=== PATIENT | female | born 1960 | race African-American/Black ===

== ENCOUNTER 2016-11-04 11:24 | Emergency (ER) | payer OTHER ==
[~2016-11-04] VITALS: Ht 167.6 cm; Wt 107.0 kg
[~2016-11-04 11:24] MED LIST: ASPI81TA2 PO; CYCL10TA2 PO; DIPH25CA58 PO; FERR325T58 PO; HYDR-2762 PO; HYDR25TA9 PO; INSU100I13 SQ; INSU100I17 SQ; LOSARTAN POTASSIUM PO; LURA80TA PO; METF10002 PO; METO50TA2 PO; PANT40TA3 PO; TRAZ100T12 PO; VENTOLIN HFA18 GM IH; VITA100C8 PO
[2016-11-04 11:39] VITALS: BP 168/77
[2016-11-04] MEDS ORDERED: HYDR50CA2 PO (12:19)
[2016-11-04] MEDS ORDERED: MUPI22OI2 TP (12:19)
[2016-11-04] MEDS ORDERED: PRED50TA PO (12:19)
[2016-11-04] MEDS ORDERED: FAMO-63 PO (12:19)
--- NOTE | 2016-11-04 12:19 | PHYS DOC ---
Past Medical History Past Medical History: Asthma, CAD, Diabetes-Type II, High Cholesterol, Hypertension, [place] Additional Past Medical Histor: [place] x 2 Past Surgical History: Angioplasty, Other Additional Past Surgical Histo: STENTS X'S 2 Additional Information: 8 cigs/day. Alcohol Use: None Drug Use: None, Cocaine Adult General Chief Complaint Chief Complaint: COUGH HPI HPI Patient is a 56 year old female presents emergency room today with complaint of red, tender areas to her skin that began 3 days ago. Patient states that she was seen at [facility] for cough and was prescribed doxycycline. She states that the rash began within 24 hours after taking the doxycycline. She states that she has taken doxycycline when she was much younger and had no complications. She denies facial or airway swelling. She denies any difficulty breathing.. Patient states that she did stop taking the doxycycline within the past 24 hours. Review of Systems Review of Systems Constitutional: Denies fever or chills [] Eyes: Denies change in visual acuity, redness, or eye pain [] HENT: Denies nasal congestion or sore throat [] Respiratory: Denies cough or shortness of breath [] Cardiovascular: No additional information not addressed in HPI [] GI: Denies abdominal pain, nausea, vomiting, bloody stools or diarrhea [] : Denies dysuria or hematuria [] Musculoskeletal: Denies back pain or joint pain [] Integument: Denies rash or skin lesions [] Neurologic: Denies headache, focal weakness or sensory changes [] Endocrine: Denies polyuria or polydipsia [] Allergies Allergies Allergies Coded Allergies Type Severity Reaction Last Updated Verified ketorolac Allergy Intermediate 07/07/15 No morphine Allergy Intermediate 07/07/15 No Physical Exam Physical Exam Constitutional: Well developed, well nourished, no acute distress, non-toxic appearance. [] HENT: Normocephalic, atraumatic, bilateral external ears normal, oropharynx moist, no oral exudates, nose normal. There is no angioedema. There is no trismus. There is no mucocutaneous sloughing. Eyes: PERRLA, EOMI, conjunctiva normal, no discharge. [] Neck: Normal range of motion, no tenderness, supple, no stridor. Cardiovascular:Heart rate regular rhythm, no murmur [] Lungs & Thorax: There is no respiratory distress or respiratory fatigue. Patient does have a scant amount of bilateral wheezing. Excision saturations 97 % on room air. Abdomen: Bowel sounds normal, soft, no tenderness, no masses, no pulsatile masses. [] Skin: Macular erythematous lesions in patient's webspaces on her left and right hand. She also has a similar lesion on the radial aspect of her left wrist and one just proximal to her medial malleolus on her left ankle. There is a small vesicle in the center of the lesion above her left malleolus. There is no fluctuance, induration or ascending lymphangitis. There is no purulent drainage from either these lesions. Back: No tenderness, no CVA tenderness. [] Extremities: No tenderness, no cyanosis, no clubbing, ROM intact, no edema. [] Neurologic: Alert and oriented X 3, normal motor function, normal sensory function, no focal deficits noted. [] Psychologic: Affect normal, judgement normal, mood normal. [] Current Patient Data Vital Signs Vital Signs Date Time Temp Pulse Resp B/P Pulse Ox O2 Delivery O2 Flow Rate FiO2 11/04/16 11:39 98.6 105 20 98 Room Air 98.6 EKG EKG [] Radiology/Procedures Radiology/Procedures [] Course & Med Decision Making Course & Med Decision Making Pertinent Labs and Imaging studies reviewed. (See chart for details) [] Dragon Disclaimer Dragon Disclaimer This electronic medical record was generated, in whole or in part, using a voice recognition dictation system. Departure Departure Impression: Primary Impression: Adverse drug reaction Disposition: HOME, SELF-CARE Condition: GOOD Referrals: NO PCP (PCP) Patient Instructions: Antibiotic Medication Additional Instructions: 1. It appears to have an adverse reaction to the doxycycline that was prescribed. It is good that you stopped taking the doxycycline. 2. Take the new medications as prescribed. 3. Follow-up with your primary care doctor Monday as planned. Scripts Mupirocin (Mupirocin Ointment)22 Gm Oint...g.1 Kel TP TID WOUND CARE #1 TUBE Prov:EL CABAN 11/04/16 Hydroxyzine Pamoate 50 Mg Capsule1 Cap PO TID medication reaction #15 CAP Ref 1 Prov:EL CABAN 11/04/16 Prednisone 50 Mg Tablet1 Tab PO DAILY medication reaction #5 TAB Prov:EL CABAN 11/04/16 Famotidine (Pepcid)20 Mg Kurubi62 Mg PO BID 5 Days Prov:EL CABAN 11/04/16 EL CABAN Nov 04, 2016 12:19
== END 2016-11-04 12:31 | disposition home or self-care (01) ==
LOC: ER 11:24
DX: T36.4X5A Adverse effect of tetracyclines, initial encounter (principal); J45.909 Unspecified asthma, uncomplicated; I25.2 Old myocardial infarction; E78.00 Pure hypercholesterolemia, unspecified; I25.10 Atherosclerotic heart disease of native coronary artery without angina pectoris; I10 Essential (primary) hypertension; Y92.89 Other specified places as the place of occurrence of the external cause; Z98.61 Coronary angioplasty status; F14.10 Cocaine abuse, uncomplicated; Z88.5 Allergy status to narcotic agent; Z88.6 Allergy status to analgesic agent
CPT/HCPCS: 99283

== ENCOUNTER 2017-04-25 12:50 | Emergency (ER) | payer OTHER ==
[~2017-04-25] VITALS: Ht 167.6 cm; Wt 98.9 kg
[~2017-04-25 12:50] MED LIST changes: +ASPI-630 PO; -ASPI81TA2 PO; +FAMO-63 PO; +HYDR50CA2 PO; +METF-620 PO; -METF10002 PO; +MUPI22OI2 TP; +PRED50TA PO
[2017-04-25] MEDS ORDERED: IV NORMAL SALINE 1000ML BAG 1,000 ML IV SCH (13:13)
[2017-04-25] MEDS ORDERED: ASPIRIN CHEWABLE 81 MG TABLET. PO ONE (13:15)
--- NOTE | 2017-04-25 13:16 | EKG ---
[facility] [address] [place] [address] Test Date: 2017-04-25 Test Time: 12:59:04 Pat Name: SHAINA ARENAS Department: Room: Gender: F [employer] Member: : 1960 Requested By: CORI FOREMAN Order Number: [id number] Reading MD: Diamante Urbina Measurements Intervals [place] Rate: 102 P: 52 IN: 162 QRS: 13 QRSD: 92 T: 62 QT: 334 QTc: 439 Interpretive Statements SINUS TACHYCARDIA LEFT ATRIAL ABNORMALITY QRS(T) CONTOUR ABNORMALITY CONSIDER ANTEROLATERAL MYOCARDIAL DAMAGE Electronically Signed On 04-30-2017 14:57:58 CDT by Diamante Urbina
[2017-04-25 13:36] LABS: BASO # 0.1 x10^3/uL (0.0-0.2); BASO % 1 % (0-3); EOS % 2 % (0-3); HEMOGLOBIN 12.5 g/dL (12.0-15.5); LYMPH # 1.7 x10^3/uL (1.0-4.8); LYMPH % 35 % (24-48); MEAN CORPUSCULAR HEMOGLOBIN 28 pg (25-35); MEAN CORPUSCULAR HGB CONC 34 g/dL (31-37); MEAN CORPUSCULAR VOLUME 83 fL (79-100); MONO % 6 % (0-9); NEUT % 56 % (31-73); PLATELET COUNT 234 x10^3/uL (140-400); RED BLOOD COUNT 4.48 x10^6/uL (3.50-5.40); WHITE BLOOD COUNT 4.7 x10^3/uL (4.0-11.0)
--- NOTE | 2017-04-25 13:54 | RAD ---
Chest radiograph 04/25/2017 at 1344 hours Indication: Chest pain Comparison: Chest radiograph 07/05/2015 Technique: Single portable AP upright view of the chest is provided. Findings: Cardiomediastinal silhouette is within normal limits. No pleural effusions, pulmonary vascular congestion or pneumothorax. The lungs are clear. Osseous structures are normal. Impression: No acute cardiothoracic process.
[2017-04-25] MEDS ORDERED: IOHEXOL 350 MG/ML 100 ML VIAL. IV ONE (14:00)
[2017-04-25 14:05] LABS: ALBUMIN 3.4 g/dL (3.4-5.0); ALBUMIN/GLOBULIN RATIO 0.8 (1.0-1.7); CALCIUM 8.8 mg/dL (8.5-10.1); CREATININE 1.4 mg/dL (0.6-1.0); GFR 47.2; POTASSIUM 4.5 mmol/L (3.5-5.1); TOTAL BILIRUBIN 0.2 mg/dL (0.2-1.0); TOTAL PROTEIN 7.6 g/dL (6.4-8.2)
[2017-04-25] MEDS ORDERED: IV NORMAL SALINE 1000ML BAG 1,000 ML IV ONE ×2 (15:00→16:30)
[2017-04-25] MEDS ORDERED: INSULIN REGULAR 100 UNIT/ML 10ML VIAL. IV ONE ×2 (15:00→16:30)
[2017-04-25] MEDS ORDERED: HYDROmorphone 2 MG/ML VIAL IV ONE (15:00)
--- NOTE | 2017-04-25 15:43 | RAD ---
CTA of the chest, abdomen and pelvis with contrast, 04/25/2017: History: Neck and back pain, evaluate aorta Multidetector CT imaging was performed following an IV bolus injection of iodinated contrast material. Multiplanar reconstructions were produced. 3-D volume rendered reconstructions of the aorta and its major branches were also produced. There is mild calcific plaquing of the thoracic aorta. Coronary artery radiopacities compatible with calcifications and/or stents are present. There is no evidence of thoracic aortic aneurysm or dissection. There is no significant narrowing at the origins of the cervicocephalic arteries from the aortic arch. There is moderate atherosclerotic plaquing of the distal abdominal aorta. The celiac and superior mesenteric artery origins are widely patent. There is a single right renal artery with mild narrowing at its origin. There are 3 smaller left renal arteries without evidence of high-grade stenosis of these vessels. A patent inferior mesenteric artery is present. There is moderate calcific plaquing in both common iliac arteries without evidence of high-grade stenosis. There is moderate stenosis at the origin of the left internal iliac artery. There is mild narrowing of the proximal right internal iliac artery. The external iliac and common femoral arteries are widely patent. There is moderate stenosis at the right superficial femoral artery origin. There is a mild thoracolumbar scoliosis with moderate degenerative change in the lower lumbar spine. IMPRESSION: 1. Coronary artery disease. 2. No evidence of aortic aneurysm or dissection. 3. Moderate aortoiliac calcific plaquing with moderate narrowing at the origin of the left internal iliac artery and the right superficial femoral artery. PQRS Compliance Statement: One or more of the following individualized dose reduction techniques were utilized for this examination: 1. Automated exposure control 2. Adjustment of the mA and/or kV according to patient size 3. Use of iterative reconstruction technique
[2017-04-25 17:49] VITALS: BP 123/76
--- NOTE | 2017-04-25 18:19 | PHYS DOC ---
Past Medical History Past Medical History: Asthma, CAD, Diabetes-Type II, High Cholesterol, Hypertension, CT Additional Past Medical Histor: CT x 2 Past Surgical History: Angioplasty, Other Additional Past Surgical Histo: STENTS X'S 2 Alcohol Use: None Drug Use: Cocaine, Marijuana Adult General Chief Complaint Chief Complaint: CHEST PAIN HPI HPI Patient is a 56 year old [f__sex] who presents with [] Review of Systems Review of Systems Constitutional: Denies fever or chills [] Eyes: Denies change in visual acuity, redness, or eye pain [] HENT: Denies nasal congestion or sore throat [] Respiratory: Denies cough or shortness of breath [] Cardiovascular: No additional information not addressed in HPI [] GI: Denies abdominal pain, nausea, vomiting, bloody stools or diarrhea [] : Denies dysuria or hematuria [] Musculoskeletal: Denies back pain or joint pain [] Integument: Denies rash or skin lesions [] Neurologic: Denies headache, focal weakness or sensory changes [] Endocrine: Denies polyuria or polydipsia [] Current Medications Current Medications Current Medications Medications (Trade) Dose Ordered Sig/Carmina Start Time Stop Time Status Last Admin Dose Admin Aspirin (Children'S Aspirin) 324 mg 1X ONCE 04/25/17 13:15 04/25/17 13:16 DC 04/25/17 13:22 324 MG Hydromorphone HCl (Dilaudid) 0.5 mg 1X ONCE 04/25/17 15:00 04/25/17 15:01 DC 04/25/17 15:05 0.5 MG Insulin Human Regular (NovoLIN R VIAL) 10 unit 1X ONCE 04/25/17 16:30 04/25/17 16:31 DC 04/25/17 16:42 10 UNIT Iohexol (Omnipaque 350 Mg/ml) 95 ml 1X ONCE 04/25/17 14:00 04/25/17 14:01 DC 04/25/17 14:32 75 ML Sodium Chloride 1,000 ml @ 1,000 mls/hr 1X ONCE 04/25/17 16:30 04/25/17 17:29 DC 04/25/17 16:43 1,000 MLS/HR Allergies Allergies Allergies Coded Allergies Type Severity Reaction Last Updated Verified doxycycline Allergy Intermediate Rash 04/11/17 Yes ketorolac Allergy Intermediate 07/07/15 No lactose Allergy Intermediate 04/25/17 Yes morphine Allergy Intermediate 07/07/15 No Uncoded Allergies Type Severity Reaction Last Updated Verified ALL FRESH FRUITS Allergy Unknown 04/25/17 Physical Exam Physical Exam Constitutional: Well developed, well nourished, no acute distress, non-toxic appearance. [] HENT: Normocephalic, atraumatic, bilateral external ears normal, oropharynx moist, no oral exudates, nose normal. [] Eyes: PERRLA, EOMI, conjunctiva normal, no discharge. [] Neck: Normal range of motion, no tenderness, supple, no stridor. [] Cardiovascular:Heart rate regular rhythm, no murmur [] Lungs & Thorax: Bilateral breath sounds clear to auscultation [] Abdomen: Bowel sounds normal, soft, no tenderness, no masses, no pulsatile masses. [] Skin: Warm, dry, no erythema, no rash. [] Back: No tenderness, no CVA tenderness. [] Extremities: No tenderness, no cyanosis, no clubbing, ROM intact, no edema. [] Neurologic: Alert and oriented X 3, normal motor function, normal sensory function, no focal deficits noted. [] Psychologic: Affect normal, judgement normal, mood normal. [] Current Patient Data Vital Signs Vital Signs Date Time Temp Pulse Resp B/P (MAP) Pulse Ox O2 Delivery O2 Flow Rate FiO2 04/25/17 17:49 95 18 123/76 (92) 98 Room Air 04/25/17 12:58 98.0 98.0 Lab Values Laboratory Tests Test 04/25/17 13:05 04/25/17 16:17 04/25/17 17:26 White Blood Count 4.7 x10^3/uL (4.0-11.0) Red Blood Count 4.48 x10^6/uL (3.50-5.40) Hemoglobin 12.5 g/dL (12.0-15.5) Hematocrit 37.0 % (36.0-47.0) Mean Corpuscular Volume 83 fL (79-100) Mean Corpuscular Hemoglobin 28 pg (25-35) Mean Corpuscular Hemoglobin Concent 34 g/dL (31-37) Red Cell Distribution Width 14.0 % (11.5-14.5) Platelet Count 234 x10^3/uL (140-400) Neutrophils (%) (Auto) 56 % (31-73) Lymphocytes (%) (Auto) 35 % (24-48) Monocytes (%) (Auto) 6 % (0-9) Eosinophils (%) (Auto) 2 % (0-3) Basophils (%) (Auto) 1 % (0-3) Neutrophils # (Auto) 2.6 x10^3uL (1.8-7.7) Lymphocytes # (Auto) 1.7 x10^3/uL (1.0-4.8) Monocytes # (Auto) 0.3 x10^3/uL (0.0-1.1) Eosinophils # (Auto) 0.1 x10^3/uL (0.0-0.7) Basophils # (Auto) 0.1 x10^3/uL (0.0-0.2) Sodium Level 129 mmol/L (136-145) L Potassium Level 4.5 mmol/L (3.5-5.1) Chloride Level 92 mmol/L (98-107) L Carbon Dioxide Level 27 mmol/L (21-32) Anion Gap 10 (6-14) Blood Urea Nitrogen 23 mg/dL (7-20) H Creatinine 1.4 mg/dL (0.6-1.0) H Estimated GFR (Cockcroft-Gault) 47.2 BUN/Creatinine Ratio 16 (6-20) Glucose Level 659 mg/dL (70-99) *H Calcium Level 8.8 mg/dL (8.5-10.1) Total Bilirubin 0.2 mg/dL (0.2-1.0) Aspartate Amino Transferase (AST) 12 U/L (15-37) L Alanine Aminotransferase (ALT) 18 U/L (14-59) Alkaline Phosphatase 166 U/L (46-116) H Troponin I Quantitative < 0.017 ng/mL (0.000-0.055) Total Protein 7.6 g/dL (6.4-8.2) Albumin 3.4 g/dL (3.4-5.0) Albumin/Globulin Ratio 0.8 (1.0-1.7) L Glucose (Fingerstick) 429 mg/dL (70-99) H 283 mg/dL (70-99) H Laboratory Tests 04/25/17 13:05 Laboratory Tests 04/25/17 13:05 EKG EKG [] Radiology/Procedures Radiology/Procedures [] Course & Med Decision Making Course & Med Decision Making Pertinent Labs and Imaging studies reviewed. (See chart for details) [] Dragon Disclaimer Dragon Disclaimer This electronic medical record was generated, in whole or in part, using a voice recognition dictation system. Departure Departure Impression: Primary Impression: Chest wall pain Additional Impressions: Hyperglycemia Mild dehydration Uncontrolled diabetes mellitus Disposition: HOME, SELF-CARE Condition: IMPROVED Referrals: SEAN ROGER MD (PCP) Patient Instructions: Chest Wall Pain, Hyperglycemia Additional Instructions: You are suffering from chest wall pain today. This means that the muscles and connective tissues of your chest are sore. Take ibuprofen 800 mg every 6 hours as needed. U may find warm soaks warm compresses and gentle stretches helpful. There is no clinical evidence or medical findings today to suggest an acute problem with your heart today. Your glucose was uncontrolled. Be sure to adhere to your diabetic medication regimen exactly as prescribed. The careful to comply with the strict diabetic diet. Your blood pressure was also uncontrolled today. It's important you stop smoking to optimize your long-term health. Follow up with your doctor for reevaluation and further treatment as needed. Return immediately for new severe or worsening symptoms Problem Qualifiers CORI FOREMAN MD Apr 25, 2017 18:19
== END 2017-04-25 18:40 | disposition home or self-care (01) ==
LOC: ER 12:50
DX: R07.81 Pleurodynia (principal); E11.65 Type 2 diabetes mellitus with hyperglycemia; E86.0 Dehydration; E78.00 Pure hypercholesterolemia, unspecified; I25.10 Atherosclerotic heart disease of native coronary artery without angina pectoris; I10 Essential (primary) hypertension; I25.2 Old myocardial infarction; J45.909 Unspecified asthma, uncomplicated; Z95.5 Presence of coronary angioplasty implant and graft; F12.10 Cannabis abuse, uncomplicated; F14.10 Cocaine abuse, uncomplicated; Z88.1 Allergy status to other antibiotic agents; Z88.5 Allergy status to narcotic agent; Z88.8 Allergy status to other drugs, medicaments and biological substances; Z91.018 Allergy to other foods; Z91.011 Allergy to milk products
CPT/HCPCS: 36415; 71010; 71275; 74174; 80053; 82962; 84484; 85027; 93005; 96361; 96374; 96375; 96376; 99285; J1170; J1815; J7030; Q9967

== ENCOUNTER 2017-06-07 12:32 | Inpatient (IN) | payer OTHER ==
[~2017-06-07] VITALS: Ht 167.6 cm; Wt 102.6 kg
[2017-06-07] MEDS ORDERED: fentaNYL PF VIAL 100 MCG/2 ML VIAL IV PRN (12:45)
--- NOTE | 2017-06-07 12:51 | EKG ---
[facility] [address] [place] [address] Test Date: 2017-06-07 Test Time: 12:41:14 Pat Name: SHAINA ARENAS Department: Room: Gender: F [place]: : 1960 Requested By: BILLY WOODS Order Number: [id number] Reading MD: Lino Archibald Measurements Intervals [place] Rate: 98 P: 52 [place]: 140 QRS: -8 QRSD: 92 T: 59 QT: 350 QTc: 449 Interpretive Statements SINUS RHYTHM LEFT ATRIAL ABNORMALITY LEFTWARD AXIS QRS(T) CONTOUR ABNORMALITY CONSISTENT WITH INFERIOR INFARCT PROBABLY OLD Electronically Signed On 06-12-2017 14:28:33 CDT by Lino Archibald
[2017-06-07] MEDS: NITROGLYCERIN SUBLINGUAL 0.4 MG BOTTLE OF 25. SL PRN ×2 (13:17→13:29)
[2017-06-07 13:24] LABS: BASO % 0 % (0-3); EOS % 1 % (0-3); HEMATOCRIT 38.1 % (36.0-47.0); HEMOGLOBIN 12.7 g/dL (12.0-15.5); LYMPH # 1.9 x10^3/uL (1.0-4.8); LYMPH % 31 % (24-48); MEAN CORPUSCULAR HEMOGLOBIN 28 pg (25-35); MEAN CORPUSCULAR HGB CONC 33 g/dL (31-37); MEAN CORPUSCULAR VOLUME 83 fL (79-100); MONO % 6 % (0-9); NEUT % 61 % (31-73); PLATELET COUNT 230 x10^3/uL (140-400); RED CELL DISTRIBUTION WIDTH 14.1 % (11.5-14.5); WHITE BLOOD COUNT 6.1 x10^3/uL (4.0-11.0)
[2017-06-07 13:52] LABS: CALCIUM 9.1 mg/dL (8.5-10.1); GFR 69.4; POTASSIUM 3.9 mmol/L (3.5-5.1)
[2017-06-07 13:57] LABS: ALBUMIN 3.3 g/dL (3.4-5.0); DIRECT BILIRUBIN 0.1 mg/dL (0.0-0.2); TOTAL BILIRUBIN 0.4 mg/dL (0.2-1.0); TOTAL PROTEIN 7.4 g/dL (6.4-8.2)
--- NOTE | 2017-06-07 14:10 | RAD ---
Portable chest, 06/07/2017: History: Chest pain Comparison is made to a study from 04/25/2017. The heart size and pulmonary vascularity are normal. No pulmonary infiltrates are seen. There is no evidence of pleural fluid. IMPRESSION: No acute cardiopulmonary abnormality is detected.
[2017-06-07] MEDS ORDERED: CONTRAST GIVEN MC PRN (14:30)
[2017-06-07] MEDS ORDERED: IOHEXOL 300 MG/ML 75 ML VIAL IV ONE (14:30)
--- NOTE | 2017-06-07 15:36 | RAD ---
CT of the abdomen and pelvis with contrast, 06/07/2017: History: Abdominal pain, nausea and vomiting Multidetector CT imaging was performed following an IV bolus injection of iodinated contrast material. No oral contrast material was administered for this study. No hepatic abnormality is identified. The gallbladder is unremarkable. No pancreatic abnormality is seen. The spleen is of normal size. No renal or adrenal abnormality is detected. There is moderate aortoiliac calcific plaquing. No abdominal or pelvic adenopathy is seen. The left ureter is mildly prominent. There is mild streaky increased density in the adjacent periureteral fat. This also partially obscures the adjacent gonadal vein. No definite calculus is seen within the left ureter. There are several lower pelvic phleboliths. One of these lies near the distal left ureter, but is unchanged since 04/25/2017, indicating that it is in fact a phlebolith rather than a ureteral calculus. The partially filled urinary bladder is unremarkable. The bowel loops are not dilated. The appendix is visualized and shows no abnormality. No free air or significant free fluid is evident in the abdomen or pelvis. There are moderate degenerative changes in the lower lumbar spine. IMPRESSION: 1. Mild streaky edema along the course of the left gonadal vein and left ureter as described above. Gonadal vein thrombophlebitis is suspected. Residual edema due to recent passage of a ureteral calculus or infection are less likely possibilities. 2. No other acute abdominal or pelvic abnormality is detected. PQRS Compliance Statement: One or more of the following individualized dose reduction techniques were utilized for this examination: 1. Automated exposure control 2. Adjustment of the mA and/or kV according to patient size 3. Use of iterative reconstruction technique
[2017-06-07 15:50] LABS: BILIRUBIN,URINE NEGATIVE (NEG); GLUCOSE,URINE >=1000 mg/dL (NEG); NITRITE,URINE NEGATIVE (NEG); PH,URINE 5.5; PROTEIN,URINE 30 mg/dL (NEG-TRACE); UROBILINOGEN,URINE 0.2 mg/dL (0.2 mg/dL)
[2017-06-07 15:56] LABS: BACTERIA,URINE MANY /HPF (0-FEW); BARBITURATES NEG (NEG); BENZODIAZEPINES NEG (NEG); CANNABINOIDS NEG (NEG); COCAINE POS (NEG); METHADONE NEG (NEG); OPIATES NEG (NEG); PHENCYCLIDINE NEG (NEG); SQUAMOUS EPITHELIAL CELL,UR FEW /LPF; WBC,URINE >40 /HPF (0-4)
--- NOTE | 2017-06-07 16:27 | ED.ADGEN ---
Past Medical History Past Medical History: Asthma, CAD, Diabetes-Type II, High Cholesterol, Hypertension, MT Additional Past Medical Histor: MT x 2 Past Surgical History: Angioplasty, Other Additional Past Surgical Histo: STENTS X'S 2 Alcohol Use: None Drug Use: Cocaine, Marijuana Adult General Chief Complaint Chief Complaint: CHEST PAIN HPI HPI Patient is a 57 year old woman, history of CAD status post placement of 2 stents , with a catheterization performed approximately 1 month ago at , with no additional stents placed at that time, obesity, hypertension, type 2 diabetes mellitus that is insulin-dependent, who presents to the emergency department with a complaint of chest pain and abdominal pain. Patient states pain began on Monday. She states the chest pain has been intermittent, she has been "taking nitroglycerin to try to get to go down", she states that it keeps reoccurring, located in the center of her chest, and radiates to the left side into her left arm. She denies any weakness in this or tingling, any headache, any fevers or chills, any cough, any injuries, any swelling extremities. Any history of DVT or PE. Patient states she is also experiencing "burning in my ovaries", that began today, with pain located in the left side of her lower abdomen, denies previously, states that she is experiencing burning with urination that began today. She denies any discharge or drainage, denies any ingestions or exposures , any drugs, alcohol, she does smoke cigarettes. She states she has been taking all medications as directed, and follows at . Review of Systems Review of Systems Constitutional: Denies fever or chills. [] Eyes: Denies change in visual acuity. [] HENT: Denies nasal congestion or sore throat. [] Respiratory: Denies cough or shortness of breath. [] Cardiovascular: Left-sided chest pain radiating into the left upper extremity. No edema. GI: Abdominal pain located in the left lower abdomen, no nausea, vomiting or diarrhea. : Dysuria times one day. Musculoskeletal: Denies back pain or joint pain. [] Integument: Denies rash. [] Neurologic: Denies headache, focal weakness or sensory changes. [] Endocrine: Denies polyuria or polydipsia. [] Lymphatic: Denies swollen glands. [] Psychiatric: Denies depression or anxiety. [] Current Medications Current Medications Current Medications Medications (Trade) Dose Ordered Sig/Carmina Start Time Stop Time Status Last Admin Dose Admin Ceftriaxone Sodium 1 gm/ Sodium Chloride 50 ml @ 100 mls/hr Q24H 06/07/17 16:15 UNV Ceftriaxone Sodium 50 ml @ 100 mls/hr 1X ONCE 06/07/17 16:30 06/07/17 16:59 Fentanyl Citrate (Fentanyl 2ml Vial) 25 mcg PRN Q15MIN PRN 06/07/17 12:45 06/08/17 12:44 06/07/17 13:31 25 MCG Info (Do NOT chart on this entry -- for MONITORING) 1 each PRN DAILY PRN 06/07/17 14:30 06/09/17 14:29 Iohexol (Omnipaque 300 Mg/ml) 75 ml 1X ONCE 06/07/17 14:30 06/07/17 14:31 DC 06/07/17 15:00 75 ML Nitroglycerin (Nitrostat) 0.4 mg PRN Q5MIN PRN 06/07/17 12:45 06/08/17 12:44 06/07/17 13:29 0.4 MG Allergies Allergies Allergies Coded Allergies Type Severity Reaction Last Updated Verified doxycycline Allergy Intermediate Rash 04/11/17 Yes ketorolac Allergy Intermediate 07/07/15 No lactose Allergy Intermediate 04/25/17 Yes morphine Allergy Intermediate 07/07/15 No Uncoded Allergies Type Severity Reaction Last Updated Verified ALL FRESH FRUITS Allergy Unknown 04/25/17 Physical Exam Physical Exam Constitutional: Well developed, well nourished, no acute distress, non-toxic appearance. [] HENT: Normocephalic, atraumatic, bilateral external ears normal, oropharynx moist, no oral exudates, nose normal. [] Eyes: PERRLA, EOMI, conjunctiva normal, no discharge. [] Neck: Normal range of motion, no tenderness, supple, no stridor. [] Cardiovascular:Heart rate regular rhythm, no murmur, S1, S2, no rubs or gallops. [] Lungs & Thorax: Bilateral breath sounds clear to auscultation, no wheezing, rhonchi, rales. No chest wall crepitus or tenderness. Reproduce symptoms with palpation. [] Abdomen: Bowel sounds normal, soft, obese, tenderness palpation in the left lower abdomen, no rebound or rigidity, no guarding, no masses, no pulsatile masses. [] Skin: Warm, dry, no erythema, no rash. [] Back: No tenderness, no CVA tenderness. [] Extremities: No tenderness, no cyanosis, no clubbing, ROM intact, no edema. Negative Homans sign. [] Neurologic: Alert and oriented X 3, normal motor function, normal sensory function, no focal deficits noted. [] Psychologic: Affect normal, judgement normal, mood normal. [] Current Patient Data Vital Signs Vital Signs Date Time Temp Pulse Resp B/P (MAP) Pulse Ox O2 Delivery O2 Flow Rate FiO2 06/07/17 13:31 16 06/07/17 13:29 96 115/56 06/07/17 12:52 98.8 96 Room Air 98.8 Lab Values Laboratory Tests Test 06/07/17 13:10 06/07/17 15:40 White Blood Count 6.1 x10^3/uL (4.0-11.0) Red Blood Count 4.60 x10^6/uL (3.50-5.40) Hemoglobin 12.7 g/dL (12.0-15.5) Hematocrit 38.1 % (36.0-47.0) Mean Corpuscular Volume 83 fL (79-100) Mean Corpuscular Hemoglobin 28 pg (25-35) Mean Corpuscular Hemoglobin Concent 33 g/dL (31-37) Red Cell Distribution Width 14.1 % (11.5-14.5) Platelet Count 230 x10^3/uL (140-400) Neutrophils (%) (Auto) 61 % (31-73) Lymphocytes (%) (Auto) 31 % (24-48) Monocytes (%) (Auto) 6 % (0-9) Eosinophils (%) (Auto) 1 % (0-3) Basophils (%) (Auto) 0 % (0-3) Neutrophils # (Auto) 3.7 x10^3uL (1.8-7.7) Lymphocytes # (Auto) 1.9 x10^3/uL (1.0-4.8) Monocytes # (Auto) 0.4 x10^3/uL (0.0-1.1) Eosinophils # (Auto) 0.1 x10^3/uL (0.0-0.7) Basophils # (Auto) 0.0 x10^3/uL (0.0-0.2) Sodium Level 137 mmol/L (136-145) Potassium Level 3.9 mmol/L (3.5-5.1) Chloride Level 100 mmol/L (98-107) Carbon Dioxide Level 29 mmol/L (21-32) Anion Gap 8 (6-14) Blood Urea Nitrogen 9 mg/dL (7-20) Creatinine 1.0 mg/dL (0.6-1.0) Estimated GFR (Cockcroft-Gault) 69.4 Glucose Level 357 mg/dL (70-99) H Calcium Level 9.1 mg/dL (8.5-10.1) Total Bilirubin 0.4 mg/dL (0.2-1.0) Direct Bilirubin 0.1 mg/dL (0.0-0.2) Aspartate Amino Transferase (AST) 15 U/L (15-37) Alanine Aminotransferase (ALT) 19 U/L (14-59) Alkaline Phosphatase 153 U/L (46-116) H Troponin I Quantitative < 0.017 ng/mL (0.000-0.055) OR-Fak-V-Type Natriuretic Peptide 229 pg/mL (0-124) H Total Protein 7.4 g/dL (6.4-8.2) Albumin 3.3 g/dL (3.4-5.0) L Lipase 91 U/L (73-393) Urine Collection Type Unknown Urine Color Yellow Urine Clarity Cloudy Urine pH 5.5 Urine Specific Harvey >=1.030 Urine Protein 30 mg/dL (NEG-TRACE) Urine Glucose (UA) >=1000 mg/dL (NEG) Urine Ketones (Stick) Negative mg/dL (NEG) Urine Blood Moderate (NEG) Urine Nitrite Negative (NEG) Urine Bilirubin Negative (NEG) Urine Urobilinogen Dipstick 0.2 mg/dL (0.2 mg/dL) Urine Leukocyte Esterase Large (NEG) Urine RBC 3-5 /HPF (0-2) Urine WBC >40 /HPF (0-4) Urine Squamous Epithelial Cells Few /LPF Urine Bacteria Many /HPF (0-FEW) Urine Opiates Screen Neg (NEG) Urine Methadone Screen Neg (NEG) Urine Barbiturates Neg (NEG) Urine Phencyclidine Screen Neg (NEG) Urine Amphetamine/Methamphetamine Neg (NEG) Urine Benzodiazepines Screen Neg (NEG) Urine Cocaine Screen Pos (NEG) Urine Cannabinoids Screen Neg (NEG) Urine Ethyl Alcohol Neg (NEG) Laboratory Tests 06/07/17 13:10 Laboratory Tests 06/07/17 13:10 EKG EKG EC: Sinus rhythm, heart rate 98 beats/minute, axis deviation, QTC of 449 , NH of 140, QRS of 92, patient with contour malleus noted in the inferior leads , and anterior lateral leads, left ventricular hypertrophy noted, abnormal ECG, does not meet STEMI criteria. As interpreted by me. [] Radiology/Procedures Radiology/Procedures [][facility] [address] [place] [id number] IMAGING REPORT Signed PATIENT: SHAINA ARENAS V ACCOUNT: [id number] : 1960 LOCATION: ER AGE: 57 SEX: F EXAM STATUS: REG ER ORD. PHYSICIAN: BILLY WOODS DO REASON: CP PROCEDURE: PORTABLE CHEST 1V Portable chest, 06/07/2017: History: Chest pain Comparison is made to a study from 04/25/2017. The heart size and pulmonary vascularity are normal. No pulmonary infiltrates are seen. There is no evidence of pleural fluid. IMPRESSION: No acute cardiopulmonary abnormality is detected. DICTATED and SIGNED BY: IZA BEST MD DATE: 06/07/171406 CC: BILLY WOODS DO; YONIS MARTINEZ MD ~ Impressions: [address] [id number] IMAGING REPORT Signed PATIENT: SHAINA ARENAS V ACCOUNT: [id number] : 1960 LOCATION: ER AGE: 57 SEX: F EXAM STATUS: REG ER ORD. PHYSICIAN: BILLY WOODS DO REASON: abd pain/n/v PROCEDURE: CT ABD PELV W/ IV CONTRST ONLY CT of the abdomen and pelvis with contrast, 06/07/2017: History: Abdominal pain, nausea and vomiting Multidetector CT imaging was performed following an IV bolus injection of iodinated contrast material. No oral contrast material was administered for this study. No hepatic abnormality is identified. The gallbladder is unremarkable. No pancreatic abnormality is seen. The spleen is of normal size. No renal or adrenal abnormality is detected. There is moderate aortoiliac calcific plaquing. No abdominal or pelvic adenopathy is seen. The left ureter is mildly prominent. There is mild streaky increased density in the adjacent periureteral fat. This also partially obscures the adjacent gonadal vein. No definite calculus is seen within the left ureter. There are several lower pelvic phleboliths. One of these lies near the distal left ureter, but is unchanged since 04/25/2017, indicating that it is in fact a phlebolith rather than a ureteral calculus. The partially filled urinary bladder is unremarkable. The bowel loops are not dilated. The appendix is visualized and shows no abnormality. No free air or significant free fluid is evident in the abdomen or pelvis. There are moderate degenerative changes in the lower lumbar spine. IMPRESSION: 1. Mild streaky edema along the course of the left gonadal vein and left ureter as described above. Gonadal vein thrombophlebitis is suspected. Residual edema due to recent passage of a ureteral calculus or infection are less likely possibilities. 2. No other acute abdominal or pelvic abnormality is detected. PQRS Compliance Statement: One or more of the following individualized dose reduction techniques were utilized for this examination: 1. Automated exposure control 2. Adjustment of the mA and/or kV according to patient size 3. Use of iterative reconstruction technique DICTATED and SIGNED BY: IZA BEST MD DATE: 06/07/17 7880 CC: BILLY WOODS DO; YONIS MARTINEZ MD ~ Course & Med Decision Making Course & Med Decision Making Pertinent Labs and Imaging studies reviewed. (See chart for details) Due to patient's degree of discomfort in the left lower quadrant, and unclear etiology, CT abdomen and pelvis ordered along with laboratory studies and chest x-ray for further elucidation of patient's chest pain. X-ray was unremarkable, laboratory studies did not reveal any concerning findings for acute cardiac abnormalities, however patient's urine was positive for cocaine. Initial troponin was negative. CT of abdomen and pelvis reveals stranding along the gonadal vein, possible thrombophlebitis, although recent passage of renal calculi or infection are less likely, as patient is experiencing dysuria, noted to have white blood cells and bacteria in urine, will treat the UTI and continue to follow, as discussed with Dr. Ferrara of internal medicine. Patient is agreeable for admission to the hospital for further evaluation and treatment. Dr. Ferrara accepted the patient to her service as a full admission to the medical telemetry floor, with continued monitoring and cardiology consultation with serial enzymes and bridge orders entered per discussion. Dragon Disclaimer Dragon Disclaimer This electronic medical record was generated, in whole or in part, using a voice recognition dictation system. Departure Impression: Primary Impression: Chest pain Additional Impression: Abdominal pain Disposition: ADMITTED INPATIENT Admitting Physician: Maddy Ferrara Condition: IMPROVED Problem Qualifiers BILLY WOODS DO Jun 07, 2017 16:27
[2017-06-07] MEDS ORDERED: ONDANSETRON PF 4 MG/2 ML VIAL. IV PRN ×2 (16:30→19:00)
[2017-06-07] MEDS: PANTOPRAZOLE 40 MG TABLET.DR. PO SCH (16:30)
[2017-06-07] MEDS ORDERED: DEXTROSE 50% 25 GM / 50ML DISP.SYRIN. IV PRN ×2 (16:30→19:00)
[2017-06-07] MEDS ORDERED: NITROGLYCERIN SUBLINGUAL 0.4 MG BOTTLE OF 25. SL PRN (16:30)
[2017-06-07] MEDS ORDERED: ACETAMINOPHEN 325 MG TABLET. PO PRN ×2 (16:30→19:00)
[2017-06-07] MEDS ORDERED: INSULIN ASPART 300 UNITS/3 ML INSULN.PEN SQ SCH (17:00)
[2017-06-07 17:29] VITALS: BP 143/105
[2017-06-07 17:30] VITALS: BP 143/105
[2017-06-07] MEDS: fentaNYL PF VIAL 100 MCG/2 ML VIAL IV PRN (17:31)
[2017-06-07] MEDS ORDERED: INSULIN ASPART 300 UNITS/3 ML INSULN.PEN SQ ONE (18:45)
[2017-06-07 19:00] VITALS: BP 143/67
[2017-06-07] MEDS ORDERED: hydrALAZINE 20 MG/ML VIAL. IVP PRN (19:00)
[2017-06-07] MEDS ORDERED: DOCUSATE SODIUM 100 MG CAPSULE. PO PRN (19:00)
[2017-06-07] MEDS ORDERED: diphenhydrAMINE HCL 25 MG CAPSULE PO PRN (19:00)
[2017-06-07] MEDS ORDERED: MAGNESIUM HYDROXIDE 2,400 MG/30 ML ORAL.SUSP. PO PRN (19:00)
--- NOTE | 2017-06-07 19:00 | PDOC1 ---
History and Physical Date of Admission Date of Admission 06/07/17 Identification/Chief Complaint Chief Complaint chest pain, abd pain Problems: Source Source: Chart review, Patient History of Present Illness History of Present Illness HPI HPI Patient is a 57 year old woman, history of CAD status post placement of 2 stents , with a catheterization performed approximately 1 month ago at , with no additional stents placed at that time, but possible some valve replacement?, obesity, hypertension, type 2 diabetes mellitus that is insulin-dependent, came to ER today for chest pain x4ds, and LLQ abd pain x1 d. Pt is not happy about as per nurse and came here. Pt said the left side chest pain started on Monday when she was walking, pressure, 10/10, radiating to left jaw, left shoulder, with sob, nausea, diaphoresis, lasting 5-6 min and resolve for 2 min then happens again very frequently. nitro helped. She also started to have LLQ pain yesterday, + chronic constipation, but BM didnot help yesterday. no fever, chills. has frequent urination. + cocaine in drug tox. said taking cocaine once a month, last time was last week. also takes marijuana. admits GERD and + chest wall tenderness, but said this chest pain is different. Past Medical History Cardiovascular: CAD, HTN, HI, Hyperlipidemia Pulmonary: Asthma CENTRAL NERVOUS SYSTEM: CVA GI: GERD, Peptic Ulcer disease Heme/Onc: Anemia NOS, Sickle cell trait Hepatobiliary: No pertinent hx Psych: Anxiety, Depression Rheumatologic: No pertinent hx Infectious disease: No pertinent hx Renal/: No pertinent hx Endocrine: Diabetes Past Surgical History Past Surgical History: Hernia Repair Family History Family History: Family History Unknown Social History Smoke: <1 pack per day ALCOHOL: none Drugs: Cocaine, Marijuana Current Problem List Problem List Problems Medical Problems: (1) Abdominal pain Status: Acute (2) Chest pain Status: Acute Current Medications Current Medications Current Medications Medications (Trade) Dose Ordered Sig/Carmina Start Time Stop Time Status Last Admin Dose Admin Acetaminophen (Tylenol) 650 mg PRN Q4HRS PRN 06/07/17 16:30 06/08/17 16:29 Ceftriaxone Sodium 1 gm/ Sodium Chloride 50 ml @ 100 mls/hr Q24H 06/08/17 17:00 Ceftriaxone Sodium 50 ml @ 100 mls/hr 1X ONCE 06/07/17 16:30 06/07/17 16:59 DC 06/07/17 16:28 100 MLS/HR Dextrose (Dextrose 50%-Water Syringe) 12.5 gm PRN Q15MIN PRN 06/07/17 16:30 Fentanyl Citrate (Fentanyl 2ml Vial) 50 mcg PRN Q3HRS PRN 06/07/17 16:30 06/07/17 17:31 50 MCG Info (Do NOT chart on this entry -- for MONITORING) 1 each PRN DAILY PRN 06/07/17 14:30 06/09/17 14:29 Insulin Aspart (NovoLOG) 40 units 1X ONCE 06/07/17 18:45 06/07/17 18:46 Iohexol (Omnipaque 300 Mg/ml) 75 ml 1X ONCE 06/07/17 14:30 06/07/17 14:31 DC 06/07/17 15:00 75 ML Nitroglycerin (Nitrostat) 0.4 mg PRN Q5MIN PRN 06/07/17 16:30 06/08/17 16:29 Ondansetron HCl (Zofran) 4 mg PRN Q8HRS PRN 06/07/17 16:30 06/08/17 16:29 Allergies Allergies Allergies Coded Allergies Type Severity Reaction Last Updated Verified doxycycline Allergy Intermediate Rash 04/11/17 Yes ketorolac Allergy Intermediate 07/07/15 No lactose Allergy Intermediate 04/25/17 Yes morphine Allergy Intermediate 07/07/15 No Uncoded Allergies Type Severity Reaction Last Updated Verified ALL FRESH FRUITS Allergy Unknown 04/25/17 ROS Review of System CONSTITUTIONAL: No fever or chills EYES: No recent changes SKIN: No rash or itching CARDIOVASCULAR: + chest pain, no syncope, palpitations, or edema RESPIRATORY: No SOB or cough GASTROINTESTINAL: No nausea, vomiting or abdominal pain NEUROLOGICAL: No headaches or weakness ENDOCRINE: No cold or heat intolerance GENITOURINARY: No urgency or frequency of urination MUSCULOSKELETAL: No back pain or joint pain LYMPHATICS: No enlarged lymph nodes PSYCHIATRIC: No anxiety or depression Physical Exam Physical Exam GEN.: No apparent distress. Alert and oriented. HEENT: Head is normocephalic, atraumatic NECK: Supple. chest wall tenderness LUNGS: Clear to auscultation. HEART: RRR, S1, S2 present. Peripheral pulses intact ABDOMEN: Soft, Positive bowel sounds. mild LLQ tenderness, no guarding, no rebound. EXTREMITIES: Without any cyanosis. NEUROLOGIC: Normal speech, normal tone PSYCHIATRIC: Normal affect, normal mood. SKIN: No ulcerations Vitals Vitals Vital Signs Date Time Temp Pulse Resp B/P (MAP) Pulse Ox O2 Delivery O2 Flow Rate FiO2 06/07/17 17:52 Room Air 06/07/17 17:31 98 06/07/17 17:30 98.1 91 18 143/105 (118) 98.1 Labs Labs Laboratory Tests Test 06/07/17 13:10 06/07/17 15:40 06/07/17 17:43 White Blood Count 6.1 x10^3/uL (4.0-11.0) Red Blood Count 4.60 x10^6/uL (3.50-5.40) Hemoglobin 12.7 g/dL (12.0-15.5) Hematocrit 38.1 % (36.0-47.0) Mean Corpuscular Volume 83 fL (79-100) Mean Corpuscular Hemoglobin 28 pg (25-35) Mean Corpuscular Hemoglobin Concent 33 g/dL (31-37) Red Cell Distribution Width 14.1 % (11.5-14.5) Platelet Count 230 x10^3/uL (140-400) Neutrophils (%) (Auto) 61 % (31-73) Lymphocytes (%) (Auto) 31 % (24-48) Monocytes (%) (Auto) 6 % (0-9) Eosinophils (%) (Auto) 1 % (0-3) Basophils (%) (Auto) 0 % (0-3) Neutrophils # (Auto) 3.7 x10^3uL (1.8-7.7) Lymphocytes # (Auto) 1.9 x10^3/uL (1.0-4.8) Monocytes # (Auto) 0.4 x10^3/uL (0.0-1.1) Eosinophils # (Auto) 0.1 x10^3/uL (0.0-0.7) Basophils # (Auto) 0.0 x10^3/uL (0.0-0.2) Sodium Level 137 mmol/L (136-145) Potassium Level 3.9 mmol/L (3.5-5.1) Chloride Level 100 mmol/L (98-107) Carbon Dioxide Level 29 mmol/L (21-32) Anion Gap 8 (6-14) Blood Urea Nitrogen 9 mg/dL (7-20) Creatinine 1.0 mg/dL (0.6-1.0) Estimated GFR (Cockcroft-Gault) 69.4 Glucose Level 357 mg/dL (70-99) Calcium Level 9.1 mg/dL (8.5-10.1) Total Bilirubin 0.4 mg/dL (0.2-1.0) Direct Bilirubin 0.1 mg/dL (0.0-0.2) Aspartate Amino Transf (AST/SGOT) 15 U/L (15-37) Alanine Aminotransferase (ALT/SGPT) 19 U/L (14-59) Alkaline Phosphatase 153 U/L (46-116) Troponin I Quantitative < 0.017 ng/mL (0.000-0.055) JN-Rhq-M-Type Natriuretic Peptide 229 pg/mL (0-124) Total Protein 7.4 g/dL (6.4-8.2) Albumin 3.3 g/dL (3.4-5.0) Lipase 91 U/L (73-393) Urine Collection Type Unknown Urine Color Yellow Urine Clarity Cloudy Urine pH 5.5 Urine Specific Drayton >=1.030 Urine Protein 30 mg/dL (NEG-TRACE) Urine Glucose (UA) >=1000 mg/dL (NEG) Urine Ketones (Stick) Negative mg/dL (NEG) Urine Blood Moderate (NEG) Urine Nitrite Negative (NEG) Urine Bilirubin Negative (NEG) Urine Urobilinogen Dipstick 0.2 mg/dL (0.2 mg/dL) Urine Leukocyte Esterase Large (NEG) Urine RBC 3-5 /HPF (0-2) Urine WBC >40 /HPF (0-4) Urine Squamous Epithelial Cells Few /LPF Urine Bacteria Many /HPF (0-FEW) Urine Opiates Screen Neg (NEG) Urine Methadone Screen Neg (NEG) Urine Barbiturates Neg (NEG) Urine Phencyclidine Screen Neg (NEG) Urine Amphetamine/Methamphetamine Neg (NEG) Urine Benzodiazepines Screen Neg (NEG) Urine Cocaine Screen Pos (NEG) Urine Cannabinoids Screen Neg (NEG) Urine Ethyl Alcohol Neg (NEG) Glucose (Fingerstick) 386 mg/dL (70-99) Laboratory Tests Test 06/07/17 13:10 06/07/17 15:40 06/07/17 17:43 White Blood Count 6.1 x10^3/uL (4.0-11.0) Red Blood Count 4.60 x10^6/uL (3.50-5.40) Hemoglobin 12.7 g/dL (12.0-15.5) Hematocrit 38.1 % (36.0-47.0) Mean Corpuscular Volume 83 fL (79-100) Mean Corpuscular Hemoglobin 28 pg (25-35) Mean Corpuscular Hemoglobin Concent 33 g/dL (31-37) Red Cell Distribution Width 14.1 % (11.5-14.5) Platelet Count 230 x10^3/uL (140-400) Neutrophils (%) (Auto) 61 % (31-73) Lymphocytes (%) (Auto) 31 % (24-48) Monocytes (%) (Auto) 6 % (0-9) Eosinophils (%) (Auto) 1 % (0-3) Basophils (%) (Auto) 0 % (0-3) Neutrophils # (Auto) 3.7 x10^3uL (1.8-7.7) Lymphocytes # (Auto) 1.9 x10^3/uL (1.0-4.8) Monocytes # (Auto) 0.4 x10^3/uL (0.0-1.1) Eosinophils # (Auto) 0.1 x10^3/uL (0.0-0.7) Basophils # (Auto) 0.0 x10^3/uL (0.0-0.2) Sodium Level 137 mmol/L (136-145) Potassium Level 3.9 mmol/L (3.5-5.1) Chloride Level 100 mmol/L (98-107) Carbon Dioxide Level 29 mmol/L (21-32) Anion Gap 8 (6-14) Blood Urea Nitrogen 9 mg/dL (7-20) Creatinine 1.0 mg/dL (0.6-1.0) Estimated GFR (Cockcroft-Gault) 69.4 Glucose Level 357 mg/dL (70-99) Calcium Level 9.1 mg/dL (8.5-10.1) Total Bilirubin 0.4 mg/dL (0.2-1.0) Direct Bilirubin 0.1 mg/dL (0.0-0.2) Aspartate Amino Transf (AST/SGOT) 15 U/L (15-37) Alanine Aminotransferase (ALT/SGPT) 19 U/L (14-59) Alkaline Phosphatase 153 U/L (46-116) Troponin I Quantitative < 0.017 ng/mL (0.000-0.055) RA-Shu-E-Type Natriuretic Peptide 229 pg/mL (0-124) Total Protein 7.4 g/dL (6.4-8.2) Albumin 3.3 g/dL (3.4-5.0) Lipase 91 U/L (73-393) Urine Collection Type Unknown Urine Color Yellow Urine Clarity Cloudy Urine pH 5.5 Urine Specific Drayton >=1.030 Urine Protein 30 mg/dL (NEG-TRACE) Urine Glucose (UA) >=1000 mg/dL (NEG) Urine Ketones (Stick) Negative mg/dL (NEG) Urine Blood Moderate (NEG) Urine Nitrite Negative (NEG) Urine Bilirubin Negative (NEG) Urine Urobilinogen Dipstick 0.2 mg/dL (0.2 mg/dL) Urine Leukocyte Esterase Large (NEG) Urine RBC 3-5 /HPF (0-2) Urine WBC >40 /HPF (0-4) Urine Squamous Epithelial Cells Few /LPF Urine Bacteria Many /HPF (0-FEW) Urine Opiates Screen Neg (NEG) Urine Methadone Screen Neg (NEG) Urine Barbiturates Neg (NEG) Urine Phencyclidine Screen Neg (NEG) Urine Amphetamine/Methamphetamine Neg (NEG) Urine Benzodiazepines Screen Neg (NEG) Urine Cocaine Screen Pos (NEG) Urine Cannabinoids Screen Neg (NEG) Urine Ethyl Alcohol Neg (NEG) Glucose (Fingerstick) 386 mg/dL (70-99) VTE Prophylaxis Ordered VTE Prophylaxis Devices: Yes VTE Pharmacological Prophylaxi: Yes Assessment/Plan Assessment/Plan chest pAIN, need to rule out unstable angina, also could be cocaine induced coranary spasm h/o CAD with 2 stents, 2003, 2006 possible valve replacement recently? LLQ abd pain, ct suspects Gonadal vein thrombophlebitis dm2, high dose insulin dependent htn hld tobaccoism asthma possible COPD with smoking drug abuse with Cocaine, Marijuana UTI morbid obesity chronic constipation opiods dependence plan: card, ob consult cont home meds on insulin ,SSI, check hba1c stool softner dvt ppx ceftriaxone for now , fu ucx cont home meds ASHLEIGH TAYLOR MD Jun 07, 2017 19:00
[2017-06-07] MEDS ORDERED: ALBUTEROL SULFATE 2.5 MG/3 ML NEBU. NEB PRN (19:30)
[2017-06-07] MEDS: LURASIDONE 40 MG TABLET. PO SCH (20:27)
[2017-06-07] MEDS: traZODone 100 MG TABLET. PO SCH (20:28)
[2017-06-07] MEDS: SENNOSIDES/DOCUSATE 8.6/50MG TABLET. PO SCH (20:28)
[2017-06-07] MEDS: FERROUS SULFATE 325 MG TABLET. PO SCH (20:28)
[2017-06-07] MEDS: LOSARTAN POTASSIUM 50 MG TABLET. PO SCH (20:28)
[2017-06-07] MEDS: ASPIRIN CHEWABLE 81 MG TABLET. PO SCH (20:29)
[2017-06-07] MEDS: FAMOTIDINE 20 MG TABLET. PO SCH (20:29)
[2017-06-07] MEDS: ENOXAPARIN 40 MG/0.4 ML SYRINGE. SQ SCH (20:31)
[2017-06-07] MEDS: INSULIN DETEMIR 300 UNITS/3 ML INSULN.PEN. SQ SCH (20:31)
[2017-06-07] MEDS: DOCUSATE SODIUM 100 MG CAPSULE. PO SCH (20:52)
[2017-06-07] MEDS: oxyCODONE IR 5 MG TABLET PO PRN (20:53)
[2017-06-07] MEDS: INSULIN ASPART 300 UNITS/3 ML INSULN.PEN SQ SCH (20:55)
[2017-06-07] MEDS ORDERED: HYDROXYZINE PAMOATE PO SCH (21:00)
[2017-06-07] MEDS ORDERED: NON FORMULARY ITEM (Lurasidone Hcl (Latuda) 1 TAB) PO SCH (21:00)
[2017-06-07 23:00] VITALS: BP 144/76
[2017-06-08 02:19] LABS: CALCIUM 8.4 mg/dL (8.5-10.1); CREATININE 0.9 mg/dL (0.6-1.0); GFR 78.4
[2017-06-08] MEDS: fentaNYL PF VIAL 100 MCG/2 ML VIAL IV PRN (02:59)
[2017-06-08 03:15] VITALS: BP 134/72
[2017-06-08 04:32] LABS: BASO % 1 % (0-3); EOS % 3 % (0-3); HEMATOCRIT 35.3 % (36.0-47.0); HEMOGLOBIN 11.5 g/dL (12.0-15.5); LYMPH # 2.5 x10^3/uL (1.0-4.8); LYMPH % 52 % (24-48); MEAN CORPUSCULAR HEMOGLOBIN 28 pg (25-35); MEAN CORPUSCULAR HGB CONC 33 g/dL (31-37); MEAN CORPUSCULAR VOLUME 84 fL (79-100); MONO % 8 % (0-9); NEUT % 37 % (31-73); PLATELET COUNT 226 x10^3/uL (140-400); RED CELL DISTRIBUTION WIDTH 14.4 % (11.5-14.5); WHITE BLOOD COUNT 4.8 x10^3/uL (4.0-11.0)
--- NOTE | 2017-06-08 05:59 | ACF ---
Admission Forms Criteria CARDIOLOGY GRG Clinical Indications for Admission to Inpatient Care ( Tribal/check or initial the applicable condition/criteria) Hospital admission is needed for appropriate care of the patient because of ANY ONE of the following: [ ] I. Hemodynamic instability as indicated by ALL of the following (1)(2)(3) (4)(5)(6)(7)(8)(9)(10) [ ]a) Vital sign abnormality not readily corrected by appropriate treatment with 12-24 hours for ANY ONE: [ ]i) Hypotension that persists despite appropriate treatment (eg, volume repletion) [ ]ii) Tachycardiathat persists despite appropriate tx ( e.g., analgesia, fluids, sedation as indicated [ ]iii) Orthostatic vital sign changes that persists despite appropriate treatment (eg, volume repletion) [ ]b) Vital sign abnormailty that is severe indicated by ANY ONE of the following: [ ]i) Inadequate perfusion indicated by ANY ONE of the following: [ ] 1) Lactic acidosis (> 2 mmol/L) [ ] 2) New abnormal capillary refill (> 3 seconds) [ ] 3) Reduced urine output [ ] 4) New altered mental status [ ] 5) Myocardial Ischemia [ ] 6) Other metabolic acidosis (arterial pH <7.35 ) not otherwise explained. [ ]ii) Mean arterial pressure[A] less than 60 mm Hg [ ]iii) Mean arterial pressure[A] less than 70 mm Hg after 30 minutes of appropriate treatment (eg, fluid resuscitation) [ ]iv) Sustained heart rate greater than 120 beats per minute in adult or child 6 years or older[B] [ ]v) IV inotropic or vasopressor medication required to maintain adequate blood pressure or perfusion [ ] II. Severe heart failure as indicated by ANY ONE of the following(17)(18) [ ]a) Respiratory distress [ ]b) Hypotension [ ]c) Debilitating anasarca refractory to therapy (eg, tissue breakdown with infection)[C](19) [ ]d) Cardiac arrhythmias of immediate concern [ ]e) Myocardial ischemia [ ] III. Cardiac arrhythmias or findings of immediate concern indicated by ANY ONE of the following (21)(22): [ ] a) Heart rhythms that are inherently dangerous or unstable indicated by ANY ONE of the following (23)(24)(25): [ ] i) Resuscitated ventricular fibrillation or cardiac arrest [ ] ii) Ventricular escape rhythm [ ] iii) Sustained ventricular tachycardia (30 seconds or more of ventricular rhythm at greater than 100 beats per minute) [ ] iv) Nonsustained ventricular tachycardia and ANY ONE of the following: [ ] 1) Suspected cardiac ischemia as cause or consequence of ventricular tachycardia [ ] 2) Acute myocarditis [ ] b) Unstable cardiac conduction defects indicated by ANY ONE of the following(25)(26)(27) [ ] i) Type II second-degree atrioventricular block [ ]ii) Third-degree atrioventricular block [ ]iii) New-onset left bundle branch block with suspected myocardial ischemia [ ]c) Any heart rhythm and ANY ONE of the following (23)(24)(28)(29) (30) [ ] i) Continuous long-term ECG monitoring needed (e.g., initiation of drug requiring monitoring for more than 24 hours) [ ] ii) Patient has automatic implanted cardioverter defibrillator that is repeatedly firing, malfunctioning, or in need of immediate adjustment of settings beyond the scope of ambulatory or observation care [ ]d) Heart rhythms of concern due to ANY ONE of the following: [ ] i) Hypotension [ ] ii) Respiratory distress [ ] iii) Association with other significant symptoms (e.g., bradycardia with syncope or ongoing dizziness, supraventricular tachycardia with chest pain (28)(29)(31) [ ] IV. Monitoring for cardiac contusion beyond the scope of observation care needed [A](32)(33)(34) [ ] V. Surgical or device complication (e.g., valve replacement complication , ICD disfunction or pacemaker dysfunction) (49)(50)(51)(52)(53)(54) [ ] . Inpatient palliative care needed. [F](51)(52) Also use Inpatient Palliative Care Criteria [ ] VII. Nonbacterial thrombotic (marantic) endocarditis(43)(44)(55)(56)(57) [X] VIII. Cardiology condition, symptom, or finding for which emergency and observation care has failed or are not considered appropriate. [ ] IX. Acute valvular disease requiring inpatient as indicated by ANY ONE of the following (40)(41) [ ]a) Acute valvular regurgitation (42) [ ]b) Noninfectious valvulitis (43)(44) [ ]c) Obstructive valve thrombosis (45)(46) [ ]d) Paravalvular leak(47)(48) [ ]e) Other significant valvular disorder remaining after emergency or observation level of care (as appropriate) [ ]X. Pericardial disease requiring inpatient treatment as indicated by ANY ONE of the following (35)(36)(37)(38) [ ]a) Suspected tamponade [ ]b) Hemopericardium [ ]c) Other significant pericardial disorder remaining after emergency or observation level of care (as appropriate)(39) [ ] XI. Cardiac ischemia beyond scope of emergency and observation care. [ ] XII. Cyanotic heart disease requiring inpatient care as indicated by 1 or more of the following(58)(59)(60): [ ]a) Acute onset of hypoxemia [ ]b) Exacerbation [ ] XIII. Hypertension requiring inpatient treatment as indicated by ANYONE of the following(11)(12)(13)(14): [ ]a) Severe hypertension (SBP greater than 180 mm Hg or DBP greater than 110 mm Hg, or greater than the 95th percentile for age, gender, and height in pediatric patients) that cannot be controlled (eg, to SBP less than 160 mm Hg and DBP less than 100 mm Hg) by emergency department or observation care treatment(15) [ ]b) Acute end organ damage secondary to hypertension (SBP greater than 140 mm Hg or DBP greater than 90 mm Hg) as indicated by ANYONE of the following: [ ] i) Hypertensive encephalopathy (eg, Altered mental status)(16) [ ] ii) Cerebral infarction [ ] iii) Intracranial hemorrhage [ ] iv) Myocardial ischemia or infarction [ ] v) Heart failure (eg, pulmonary edema) [ ] vi) Aortic dissection [ ] vii) Increased creatinine (new) with reduction of more than 50% in estimated glomerular filtration rate from baseline [ ] viii) Papilledema [ ] ix) Retinal hemorrhage [ ] x) Microangiopathic hemolytic anemia [ ] xi) Seizure [ ] xii) Other significant finding secondary to hypertension [ ] XIV. Complications of transplanted heart indicated by ANY ONE of the following(61): [ ]a) Acute graft rejection requiring inpatient management (eg, intravenous imunosuppression)(62)(63) [ ]b) Acute graft heart failure indicated by ANY ONE of the following(64): [ ] i) Hemodynamic instability [ ] ii) Cardiac arrhythmias of immediate concern [ ] iii) Pulmonary edema that is very severe (eg, mechanical ventilation needed, imminent or likely, need for 100% oxygen to keep oxygen saturation above 90%) [ ] iv) Pulmonary edema that is persistent as indicated by ALL of the following: [ ] 1) New need for oxygen therapy to keep oxygen saturation above 90 % (or increased FiO2 need from baseline) [ ] 2) Has not improved sufficiently with emergency department or observation care IV diuretics or other heart failure treatments[E]. [ ] iv) Altered mental status that is severe or persistent [ ] iv) Increased creatinine (new on laboratory test) with reduction of more than 50% in estimated glomerular filtration rate from baseline [ ] iv) Progressively (ongoing) rising creatinine (known from past laboratory test) with reduction of more than 25% in estimated glomerular filtration rate from baseline [ ] iv) Acute renal failure [ ] iv) Acute peripheral ischemia (eg, examination shows pulseless, cool, mottled, or cyanotic extremity) [ ] iv) Pulmonary artery catheter monitoring needed [ ] iv) Other sign or symptom of heart failure requiring inpatient treatment (ie, too severe or not responsive to outpatient and observation care treatment) [ ]c) Infection requiring inpatient management (eg, Hemodynamic instability, need for intravenous antimicrobial treatment)(66)(67)(68)(69)(70) [ ]d) Cardiac allograft vasculopathy requiring inpatient management (eg evidence of cardiacischemia)(71) [ ]e) Other complication of transplanted heart (eg, stroke, severe pulmonary hypertension, severe valvular dysfunction) requiring inpatient management(72) The original [facility] content created by [facility] has been revised. The portions of the content which have been revised are identified through the use of italic text, and [facility] has neither reviewed nor approved the modified material. All other unmodified content is copyright [facility]. Please see references footnoted in the original [facility] edition 2014 Admission Criteria Met?: Yes AUGUSTUS NGUYEN Jun 08, 2017 05:59
[2017-06-08 07:10] VITALS: BP 140/62
[2017-06-08] MEDS ORDERED: INSULIN ASPART 300 UNITS/3 ML INSULN.PEN SQ SCH (08:00)
[2017-06-08] MEDS: PANTOPRAZOLE 40 MG TABLET.DR. PO SCH ×2 (08:05→16:29)
[2017-06-08] MEDS: traZODone 100 MG TABLET. PO SCH ×2 (08:05→20:25)
[2017-06-08] MEDS: SENNOSIDES/DOCUSATE 8.6/50MG TABLET. PO SCH ×2 (08:06→20:25)
[2017-06-08] MEDS: LOSARTAN POTASSIUM 50 MG TABLET. PO SCH (08:07)
[2017-06-08] MEDS: ASPIRIN CHEWABLE 81 MG TABLET. PO SCH (08:07)
[2017-06-08] MEDS: FERROUS SULFATE 325 MG TABLET. PO SCH (08:07)
[2017-06-08] MEDS: oxyCODONE IR 5 MG TABLET PO PRN ×3 (08:10→23:53)
[2017-06-08] MEDS: INSULIN ASPART 300 UNITS/3 ML INSULN.PEN SQ SCH ×7 (08:16→20:31)
[2017-06-08] MEDS: DOCUSATE SODIUM 100 MG CAPSULE. PO SCH ×2 (09:00→20:25)
[2017-06-08] MEDS: INSULIN DETEMIR 300 UNITS/3 ML INSULN.PEN. SQ SCH ×2 (09:00→20:32)
[2017-06-08] MEDS: FAMOTIDINE 20 MG TABLET. PO SCH ×2 (09:00→20:25)
[2017-06-08 09:30] LABS: CHOLESTEROL/HDL RATIO 5.3
--- NOTE | 2017-06-08 10:48 | PDOC2 ---
CARDIAC CONSULT DATE OF CONSULT Date of Consult DATE: 06/08/17 TIME: 10:32 REASON FOR CONSULT Reason for Consult: CP REFERRING PHYSICIAN Referring Physician: Marly SOURCE Source: Chart review, Patient HISTORY OF PRESENT ILLNESS HISTORY OF PRESENT ILLNESS This is a 57 yo female admitted for complains of abdominal pain and chest pain. Reports of CAD with stent placement in the past and had repeat LHC about 1 month ago in with no additional stents placed. Also has been having abdominal pain has been taking NTG. Reports that Monday she did have cocaine. At that time she started having midchest discomfort and took NTG x1. This was relieved but at the same time her pain is reproducible sharp with palpation and positional changes. 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 Verbalized compliance with her medications. Her CP reproducible but is much better. What is bothering her mostly now is her abdominal pain notebale for nausea. Denies any palpitations, SOA, or diaphoresis. PAST MEDICAL HISTORY Past Medical History Cardiovascular: CAD (stents to LAD), HTN, PR (BMS to LAD in 2005; TAXUS in 2006), Hyperlipidemia, PAD Pulmonary: Asthma CENTRAL NERVOUS SYSTEM: CVA GI: GERD, Peptic Ulcer disease Heme/Onc: Anemia NOS, Sickle cell trait Hepatobiliary: No pertinent hx Psych: Anxiety, Depression Musculoskeletal: low back pain Rheumatologic: No pertinent hx Infectious disease: No pertinent hx ENT: Allergic Rhinitis Renal/: No pertinent hx Endocrine: Diabetes Dermatology: No pertinent hx PAST SURGICAL HISTORY Past Surgical History Hernia Repair, LHC SOCIAL HISTORY Social History Smoke: <1 pack per day (smoked since age 16) ALCOHOL: none Drugs: Cocaine CURRENT MEDICATIONS CURRENT MEDICATIONS Current Medications Medications (Trade) Dose Ordered Sig/Carmina Route PRN Reason Start Time Stop Time Status Last Admin Dose Admin Nitroglycerin (Nitrostat) 0.4 mg PRN Q5MIN PRN SL CP RATING > 1/10 06/07/17 12:45 06/08/17 12:44 06/07/17 13:29 Fentanyl Citrate (Fentanyl 2ml Vial) 25 mcg PRN Q15MIN PRN IV PAIN GREATER THAN 3/10 06/07/17 12:45 06/08/17 12:44 06/07/17 13:31 Iohexol (Omnipaque 300 Mg/ml) 75 ml 1X ONCE IV 06/07/17 14:30 06/07/17 14:31 DC 06/07/17 15:00 Ceftriaxone Sodium 50 ml @ 100 mls/hr 1X ONCE IV 06/07/17 16:30 06/07/17 16:59 DC 06/07/17 16:28 Fentanyl Citrate (Fentanyl 2ml Vial) 50 mcg PRN Q3HRS PRN IV PAIN 06/07/17 16:30 06/08/17 02:59 Insulin Aspart (NovoLOG) 40 units 1X ONCE SQ 06/07/17 18:45 06/07/17 18:46 DC 06/07/17 18:45 Enoxaparin Sodium (Lovenox 40mg Syringe) 40 mg QHS SQ 06/07/17 21:00 06/07/17 20:31 Insulin Aspart (NovoLOG) 0-9 UNITS QIDACHS SQ 06/07/17 21:00 06/08/17 08:16 Senna/Docusate Sodium (Senna Plus) 1 tab BID PO 06/07/17 21:00 06/08/17 08:06 Docusate Sodium (Colace) 100 mg BID PO 06/07/17 21:00 06/07/17 20:52 Aspirin (Children'S Aspirin) 81 mg DAILY08 PO 06/07/17 20:00 06/08/17 08:07 Famotidine (Pepcid) 20 mg BID PO 06/07/17 21:00 06/07/17 20:29 Ferrous Sulfate (Feosol) 325 mg DAILY08 PO 06/07/17 20:00 06/08/17 08:07 Insulin Aspart (NovoLOG) 40 units TIDAC SQ 06/08/17 07:30 06/08/17 08:19 Pantoprazole Sodium (Protonix) 40 mg BIDAC PO 06/07/17 16:30 06/08/17 08:05 Trazodone HCl (Desyrel) 100 mg BID PO 06/07/17 21:00 06/08/17 08:05 Losartan Potassium (Cozaar) 50 mg DAILY PO 06/07/17 20:00 06/08/17 08:07 Lurasidone HCl (Latuda) 80 mg QHS PO 06/07/17 21:00 06/07/17 20:27 Oxycodone HCl (Roxicodone) 10 mg PRN Q6HRS PRN PO PAIN 06/07/17 20:30 06/08/17 08:10 ALLERGIES ALLERGIES: Coded Allergies: doxycycline (Verified Allergy, Intermediate, Rash, 04/11/17) ketorolac (Unverified Allergy, Intermediate, 07/07/15) lactose (Verified Allergy, Intermediate, 04/25/17) morphine (Unverified Allergy, Intermediate, 07/07/15) Uncoded Allergies: ALL FRESH FRUITS (Allergy, Unknown, 04/25/17) ROS Review of System 14 point ROS evaluated with pertinent positives noted per HPI PHYSICAL EXAM General: Alert, Oriented X3, Cooperative, No acute distress HEENT: Atraumatic, Mucous membr. moist/pink Lungs: Clear to auscultation, Normal air movement Heart: Regular rate (SR), Normal S1, Normal S2 Extremities: No cyanosis, No edema Skin: No breakdown, No significant lesion Neuro: Sensation intact Psych/Mental Status: Mental status NL, Mood NL MUSCULOSKELETAL: Osteoarthritic changes both hands VITALS VITALS Vital Signs Date Time Temp Pulse Resp B/P (MAP) Pulse Ox O2 Delivery O2 Flow Rate FiO2 06/08/17 09:11 97 Room Air 06/08/17 08:07 87 134/72 06/08/17 07:10 97.7 18 97.7 LABS Lab: Laboratory Tests Test 06/07/17 13:10 06/07/17 15:40 06/07/17 17:43 06/07/17 18:40 White Blood Count 6.1 x10^3/uL (4.0-11.0) Red Blood Count 4.60 x10^6/uL (3.50-5.40) Hemoglobin 12.7 g/dL (12.0-15.5) Hematocrit 38.1 % (36.0-47.0) Mean Corpuscular Volume 83 fL (79-100) Mean Corpuscular Hemoglobin 28 pg (25-35) Mean Corpuscular Hemoglobin Concent 33 g/dL (31-37) Red Cell Distribution Width 14.1 % (11.5-14.5) Platelet Count 230 x10^3/uL (140-400) Neutrophils (%) (Auto) 61 % (31-73) Lymphocytes (%) (Auto) 31 % (24-48) Monocytes (%) (Auto) 6 % (0-9) Eosinophils (%) (Auto) 1 % (0-3) Basophils (%) (Auto) 0 % (0-3) Neutrophils # (Auto) 3.7 x10^3uL (1.8-7.7) Lymphocytes # (Auto) 1.9 x10^3/uL (1.0-4.8) Monocytes # (Auto) 0.4 x10^3/uL (0.0-1.1) Eosinophils # (Auto) 0.1 x10^3/uL (0.0-0.7) Basophils # (Auto) 0.0 x10^3/uL (0.0-0.2) Sodium Level 137 mmol/L (136-145) Potassium Level 3.9 mmol/L (3.5-5.1) Chloride Level 100 mmol/L (98-107) Carbon Dioxide Level 29 mmol/L (21-32) Anion Gap 8 (6-14) Blood Urea Nitrogen 9 mg/dL (7-20) Creatinine 1.0 mg/dL (0.6-1.0) Estimated GFR (Cockcroft-Gault) 69.4 Glucose Level 357 mg/dL (70-99) Calcium Level 9.1 mg/dL (8.5-10.1) Total Bilirubin 0.4 mg/dL (0.2-1.0) Direct Bilirubin 0.1 mg/dL (0.0-0.2) Aspartate Amino Transf (AST/SGOT) 15 U/L (15-37) Alanine Aminotransferase (ALT/SGPT) 19 U/L (14-59) Alkaline Phosphatase 153 U/L (46-116) Troponin I Quantitative < 0.017 ng/mL (0.000-0.055) < 0.017 ng/mL (0.000-0.055) YX-[id number]-Type Natriuretic Peptide 229 pg/mL (0-124) Total Protein 7.4 g/dL (6.4-8.2) Albumin 3.3 g/dL (3.4-5.0) Lipase 91 U/L (73-393) Urine Collection Type Unknown Urine Color Yellow Urine Clarity Cloudy Urine pH 5.5 Urine Specific Montara >=1.030 Urine Protein 30 mg/dL (NEG-TRACE) Urine Glucose (UA) >=1000 mg/dL (NEG) Urine Ketones (Stick) Negative mg/dL (NEG) Urine Blood Moderate (NEG) Urine Nitrite Negative (NEG) Urine Bilirubin Negative (NEG) Urine Urobilinogen Dipstick 0.2 mg/dL (0.2 mg/dL) Urine Leukocyte Esterase Large (NEG) Urine RBC 3-5 /HPF (0-2) Urine WBC >40 /HPF (0-4) Urine Squamous Epithelial Cells Few /LPF Urine Bacteria Many /HPF (0-FEW) Urine Opiates Screen Neg (NEG) Urine Methadone Screen Neg (NEG) Urine Barbiturates Neg (NEG) Urine Phencyclidine Screen Neg (NEG) Urine Amphetamine/Methamphetamine Neg (NEG) Urine Benzodiazepines Screen Neg (NEG) Urine Cocaine Screen Pos (NEG) Urine Cannabinoids Screen Neg (NEG) Urine Ethyl Alcohol Neg (NEG) Glucose (Fingerstick) 386 mg/dL (70-99) Test 06/07/17 20:38 06/08/17 01:25 06/08/17 04:00 06/08/17 07:46 Glucose (Fingerstick) 152 mg/dL (70-99) 350 mg/dL (70-99) Troponin I Quantitative < 0.017 ng/mL (0.000-0.055) White Blood Count 4.8 x10^3/uL (4.0-11.0) Red Blood Count 4.20 x10^6/uL (3.50-5.40) Hemoglobin 11.5 g/dL (12.0-15.5) Hematocrit 35.3 % (36.0-47.0) Mean Corpuscular Volume 84 fL (79-100) Mean Corpuscular Hemoglobin 28 pg (25-35) Mean Corpuscular Hemoglobin Concent 33 g/dL (31-37) Red Cell Distribution Width 14.4 % (11.5-14.5) Platelet Count 226 x10^3/uL (140-400) Neutrophils (%) (Auto) 37 % (31-73) Lymphocytes (%) (Auto) 52 % (24-48) Monocytes (%) (Auto) 8 % (0-9) Eosinophils (%) (Auto) 3 % (0-3) Basophils (%) (Auto) 1 % (0-3) Neutrophils # (Auto) 1.8 x10^3uL (1.8-7.7) Lymphocytes # (Auto) 2.5 x10^3/uL (1.0-4.8) Monocytes # (Auto) 0.4 x10^3/uL (0.0-1.1) Eosinophils # (Auto) 0.1 x10^3/uL (0.0-0.7) Basophils # (Auto) 0.0 x10^3/uL (0.0-0.2) Sodium Level 139 mmol/L (136-145) Potassium Level 4.0 mmol/L (3.5-5.1) Chloride Level 103 mmol/L (98-107) Carbon Dioxide Level 32 mmol/L (21-32) Anion Gap 4 (6-14) Blood Urea Nitrogen 12 mg/dL (7-20) Creatinine 0.9 mg/dL (0.6-1.0) Estimated GFR (Cockcroft-Gault) 78.4 Glucose Level 174 mg/dL (70-99) Calcium Level 8.4 mg/dL (8.5-10.1) Triglycerides Level 208 mg/dL (0-150) Cholesterol Level 265 mg/dL (0-200) LDL Cholesterol, Calculated 173 mg/dL (0-100) VLDL Cholesterol, Calculated 42 mg/dL (0-40) Non-HDL Cholesterol Calculated 215 mg/dL (0-129) HDL Cholesterol 50 mg/dL (40-60) Cholesterol/HDL Ratio 5.3 Thyroid Stimulating Hormone (TSH) 1.229 uIU/mL (0.358-3.74) ASSESSMENT/PLAN ASSESSMENT/PLAN 1. Atypical chest pain: Troponin series normal with EKG SR without acute changes. Vasopasm would be a contributor due to cocaine use but likely MSK component. 2. CAD: PCI/stents to LAD in the past. Recent LHC in 1.5 months ago with no intervention. 3. 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 PAD: noted via CT bilaterally moderate disease to left internal iliac and RSFA. No notable claudications, neurovascular status to bilateral LE intact 5. HTN: controlled 6. DM2/HLP 7. Tobaccoism 8. Cocaine abuse Recommendations 1. Continue with secondary prevention. 2. TTE, TSH, lipid panel 3. No BB with use of cocaine 4. Smoking cessation, abstinence to cocaine. 5. Encouraged compliance. 6. If TTE unremarkable for significant changes then may DC per cardiac standpoint and follow up with cardiology 7. If chest discomfort recurs then may use imdur or low dose norvasc. Problems: LEIGHTON EMANUEL [employer] O[employer] Jun 08, 2017 10:48
[2017-06-08 11:00] VITALS: BP 151/83
--- NOTE | 2017-06-08 13:23 | PDOC ---
PROGRESS NOTES Chief Complaint Chief Complaint CC: Chest pain Anemia CAD HTN HLD PUD Sickle cell trait DM Asthma Depression History of Present Illness History of Present Illness Pt was admitted for chest pain that has since resolved. Now has UTI and CT abd concerning for gonadal vein thrombophelbitis. Vitals Vitals Vital Signs Date Time Temp Pulse Resp B/P (MAP) Pulse Ox O2 Delivery O2 Flow Rate FiO2 06/08/17 11:00 91 20 151/83 (105) 94 Room Air 06/08/17 07:10 97.7 97.7 Physical Exam General: Alert, Oriented X3, Cooperative, No acute distress Heart: Regular rate (SR), Normal S1, Normal S2 Abdomen: Other (Pain that radiates to the back) Extremities: No cyanosis, No edema Skin: No breakdown, No significant lesion Labs LABS Laboratory Tests Test 06/07/17 13:10 06/07/17 15:40 06/07/17 17:43 06/07/17 18:40 White Blood Count 6.1 x10^3/uL (4.0-11.0) Red Blood Count 4.60 x10^6/uL (3.50-5.40) Hemoglobin 12.7 g/dL (12.0-15.5) Hematocrit 38.1 % (36.0-47.0) Mean Corpuscular Volume 83 fL (79-100) Mean Corpuscular Hemoglobin 28 pg (25-35) Mean Corpuscular Hemoglobin Concent 33 g/dL (31-37) Red Cell Distribution Width 14.1 % (11.5-14.5) Platelet Count 230 x10^3/uL (140-400) Neutrophils (%) (Auto) 61 % (31-73) Lymphocytes (%) (Auto) 31 % (24-48) Monocytes (%) (Auto) 6 % (0-9) Eosinophils (%) (Auto) 1 % (0-3) Basophils (%) (Auto) 0 % (0-3) Neutrophils # (Auto) 3.7 x10^3uL (1.8-7.7) Lymphocytes # (Auto) 1.9 x10^3/uL (1.0-4.8) Monocytes # (Auto) 0.4 x10^3/uL (0.0-1.1) Eosinophils # (Auto) 0.1 x10^3/uL (0.0-0.7) Basophils # (Auto) 0.0 x10^3/uL (0.0-0.2) Sodium Level 137 mmol/L (136-145) Potassium Level 3.9 mmol/L (3.5-5.1) Chloride Level 100 mmol/L (98-107) Carbon Dioxide Level 29 mmol/L (21-32) Anion Gap 8 (6-14) Blood Urea Nitrogen 9 mg/dL (7-20) Creatinine 1.0 mg/dL (0.6-1.0) Estimated GFR (Cockcroft-Gault) 69.4 Glucose Level 357 mg/dL (70-99) Calcium Level 9.1 mg/dL (8.5-10.1) Total Bilirubin 0.4 mg/dL (0.2-1.0) Direct Bilirubin 0.1 mg/dL (0.0-0.2) Aspartate Amino Transf (AST/SGOT) 15 U/L (15-37) Alanine Aminotransferase (ALT/SGPT) 19 U/L (14-59) Alkaline Phosphatase 153 U/L (46-116) Troponin I Quantitative < 0.017 ng/mL (0.000-0.055) < 0.017 ng/mL (0.000-0.055) XO-Seb-V-Type Natriuretic Peptide 229 pg/mL (0-124) Total Protein 7.4 g/dL (6.4-8.2) Albumin 3.3 g/dL (3.4-5.0) Lipase 91 U/L (73-393) Urine Collection Type Unknown Urine Color Yellow Urine Clarity Cloudy Urine pH 5.5 Urine Specific [place] >=1.030 Urine Protein 30 mg/dL (NEG-TRACE) Urine Glucose (UA) >=1000 mg/dL (NEG) Urine Ketones (Stick) Negative mg/dL (NEG) Urine Blood Moderate (NEG) Urine Nitrite Negative (NEG) Urine Bilirubin Negative (NEG) Urine Urobilinogen Dipstick 0.2 mg/dL (0.2 mg/dL) Urine Leukocyte Esterase Large (NEG) Urine RBC 3-5 /HPF (0-2) Urine WBC >40 /HPF (0-4) Urine Squamous Epithelial Cells Few /LPF Urine Bacteria Many /HPF (0-FEW) Urine Opiates Screen Neg (NEG) Urine Methadone Screen Neg (NEG) Urine Barbiturates Neg (NEG) Urine Phencyclidine Screen Neg (NEG) Urine Amphetamine/Methamphetamine Neg (NEG) Urine Benzodiazepines Screen Neg (NEG) Urine Cocaine Screen Pos (NEG) Urine Cannabinoids Screen Neg (NEG) Urine Ethyl Alcohol Neg (NEG) Glucose (Fingerstick) 386 mg/dL (70-99) Test 06/07/17 20:38 06/08/17 01:25 06/08/17 04:00 06/08/17 07:46 Glucose (Fingerstick) 152 mg/dL (70-99) 350 mg/dL (70-99) Troponin I Quantitative < 0.017 ng/mL (0.000-0.055) White Blood Count 4.8 x10^3/uL (4.0-11.0) Red Blood Count 4.20 x10^6/uL (3.50-5.40) Hemoglobin 11.5 g/dL (12.0-15.5) Hematocrit 35.3 % (36.0-47.0) Mean Corpuscular Volume 84 fL (79-100) Mean Corpuscular Hemoglobin 28 pg (25-35) Mean Corpuscular Hemoglobin Concent 33 g/dL (31-37) Red Cell Distribution Width 14.4 % (11.5-14.5) Platelet Count 226 x10^3/uL (140-400) Neutrophils (%) (Auto) 37 % (31-73) Lymphocytes (%) (Auto) 52 % (24-48) Monocytes (%) (Auto) 8 % (0-9) Eosinophils (%) (Auto) 3 % (0-3) Basophils (%) (Auto) 1 % (0-3) Neutrophils # (Auto) 1.8 x10^3uL (1.8-7.7) Lymphocytes # (Auto) 2.5 x10^3/uL (1.0-4.8) Monocytes # (Auto) 0.4 x10^3/uL (0.0-1.1) Eosinophils # (Auto) 0.1 x10^3/uL (0.0-0.7) Basophils # (Auto) 0.0 x10^3/uL (0.0-0.2) Sodium Level 139 mmol/L (136-145) Potassium Level 4.0 mmol/L (3.5-5.1) Chloride Level 103 mmol/L (98-107) Carbon Dioxide Level 32 mmol/L (21-32) Anion Gap 4 (6-14) Blood Urea Nitrogen 12 mg/dL (7-20) Creatinine 0.9 mg/dL (0.6-1.0) Estimated GFR (Cockcroft-Gault) 78.4 Glucose Level 174 mg/dL (70-99) Calcium Level 8.4 mg/dL (8.5-10.1) Triglycerides Level 208 mg/dL (0-150) Cholesterol Level 265 mg/dL (0-200) LDL Cholesterol, Calculated 173 mg/dL (0-100) VLDL Cholesterol, Calculated 42 mg/dL (0-40) Non-HDL Cholesterol Calculated 215 mg/dL (0-129) HDL Cholesterol 50 mg/dL (40-60) Cholesterol/HDL Ratio 5.3 Thyroid Stimulating Hormone (TSH) 1.229 uIU/mL (0.358-3.74) Test 06/08/17 12:02 Glucose (Fingerstick) 129 mg/dL (70-99) Review of Systems Review of Systems Complains of abdominal pain Complains of back pain Assessment and Plan Assessmemt and Plan Problems Medical Problems: (1) Abdominal pain Status: Acute (2) Chest pain Status: Acute CC: Chest pain: Negative CXR and troponin, sinus EKG, consulted cards ( appreciate the assistance) UTI: Continue IVF, continue ceftriaxone Abd pain: CT shows sxs of possible gonadal vein thrombophlebitis or infxn, consulted OB-DETASSELER (appreciate the assistance) Anemia: Mild, continue Fe sulfate CAD: Continue to follow HTN: Continue to follow HLD: Continue to follow PUD: Continue famotidine Sickle cell trait: Continue to follow DM: Continue to follow Asthma: Continue to follow Depression: Continue trazodone Problems: Comment Review of Relevant I have reviewed the following items mei (where applicable) has been applied. Labs Laboratory Tests Test 06/07/17 13:10 06/07/17 15:40 06/07/17 17:43 06/07/17 18:40 White Blood Count 6.1 x10^3/uL (4.0-11.0) Red Blood Count 4.60 x10^6/uL (3.50-5.40) Hemoglobin 12.7 g/dL (12.0-15.5) Hematocrit 38.1 % (36.0-47.0) Mean Corpuscular Volume 83 fL (79-100) Mean Corpuscular Hemoglobin 28 pg (25-35) Mean Corpuscular Hemoglobin Concent 33 g/dL (31-37) Red Cell Distribution Width 14.1 % (11.5-14.5) Platelet Count 230 x10^3/uL (140-400) Neutrophils (%) (Auto) 61 % (31-73) Lymphocytes (%) (Auto) 31 % (24-48) Monocytes (%) (Auto) 6 % (0-9) Eosinophils (%) (Auto) 1 % (0-3) Basophils (%) (Auto) 0 % (0-3) Neutrophils # (Auto) 3.7 x10^3uL (1.8-7.7) Lymphocytes # (Auto) 1.9 x10^3/uL (1.0-4.8) Monocytes # (Auto) 0.4 x10^3/uL (0.0-1.1) Eosinophils # (Auto) 0.1 x10^3/uL (0.0-0.7) Basophils # (Auto) 0.0 x10^3/uL (0.0-0.2) Sodium Level 137 mmol/L (136-145) Potassium Level 3.9 mmol/L (3.5-5.1) Chloride Level 100 mmol/L (98-107) Carbon Dioxide Level 29 mmol/L (21-32) Anion Gap 8 (6-14) Blood Urea Nitrogen 9 mg/dL (7-20) Creatinine 1.0 mg/dL (0.6-1.0) Estimated GFR (Cockcroft-Gault) 69.4 Glucose Level 357 mg/dL (70-99) Calcium Level 9.1 mg/dL (8.5-10.1) Total Bilirubin 0.4 mg/dL (0.2-1.0) Direct Bilirubin 0.1 mg/dL (0.0-0.2) Aspartate Amino Transf (AST/SGOT) 15 U/L (15-37) Alanine Aminotransferase (ALT/SGPT) 19 U/L (14-59) Alkaline Phosphatase 153 U/L (46-116) Troponin I Quantitative < 0.017 ng/mL (0.000-0.055) < 0.017 ng/mL (0.000-0.055) AG-Rpd-F-Type Natriuretic Peptide 229 pg/mL (0-124) Total Protein 7.4 g/dL (6.4-8.2) Albumin 3.3 g/dL (3.4-5.0) Lipase 91 U/L (73-393) Urine Collection Type Unknown Urine Color Yellow Urine Clarity Cloudy Urine pH 5.5 Urine Specific [place] >=1.030 Urine Protein 30 mg/dL (NEG-TRACE) Urine Glucose (UA) >=1000 mg/dL (NEG) Urine Ketones (Stick) Negative mg/dL (NEG) Urine Blood Moderate (NEG) Urine Nitrite Negative (NEG) Urine Bilirubin Negative (NEG) Urine Urobilinogen Dipstick 0.2 mg/dL (0.2 mg/dL) Urine Leukocyte Esterase Large (NEG) Urine RBC 3-5 /HPF (0-2) Urine WBC >40 /HPF (0-4) Urine Squamous Epithelial Cells Few /LPF Urine Bacteria Many /HPF (0-FEW) Urine Opiates Screen Neg (NEG) Urine Methadone Screen Neg (NEG) Urine Barbiturates Neg (NEG) Urine Phencyclidine Screen Neg (NEG) Urine Amphetamine/Methamphetamine Neg (NEG) Urine Benzodiazepines Screen Neg (NEG) Urine Cocaine Screen Pos (NEG) Urine Cannabinoids Screen Neg (NEG) Urine Ethyl Alcohol Neg (NEG) Glucose (Fingerstick) 386 mg/dL (70-99) Test 06/07/17 20:38 06/08/17 01:25 06/08/17 04:00 06/08/17 07:46 Glucose (Fingerstick) 152 mg/dL (70-99) 350 mg/dL (70-99) Troponin I Quantitative < 0.017 ng/mL (0.000-0.055) White Blood Count 4.8 x10^3/uL (4.0-11.0) Red Blood Count 4.20 x10^6/uL (3.50-5.40) Hemoglobin 11.5 g/dL (12.0-15.5) Hematocrit 35.3 % (36.0-47.0) Mean Corpuscular Volume 84 fL (79-100) Mean Corpuscular Hemoglobin 28 pg (25-35) Mean Corpuscular Hemoglobin Concent 33 g/dL (31-37) Red Cell Distribution Width 14.4 % (11.5-14.5) Platelet Count 226 x10^3/uL (140-400) Neutrophils (%) (Auto) 37 % (31-73) Lymphocytes (%) (Auto) 52 % (24-48) Monocytes (%) (Auto) 8 % (0-9) Eosinophils (%) (Auto) 3 % (0-3) Basophils (%) (Auto) 1 % (0-3) Neutrophils # (Auto) 1.8 x10^3uL (1.8-7.7) Lymphocytes # (Auto) 2.5 x10^3/uL (1.0-4.8) Monocytes # (Auto) 0.4 x10^3/uL (0.0-1.1) Eosinophils # (Auto) 0.1 x10^3/uL (0.0-0.7) Basophils # (Auto) 0.0 x10^3/uL (0.0-0.2) Sodium Level 139 mmol/L (136-145) Potassium Level 4.0 mmol/L (3.5-5.1) Chloride Level 103 mmol/L (98-107) Carbon Dioxide Level 32 mmol/L (21-32) Anion Gap 4 (6-14) Blood Urea Nitrogen 12 mg/dL (7-20) Creatinine 0.9 mg/dL (0.6-1.0) Estimated GFR (Cockcroft-Gault) 78.4 Glucose Level 174 mg/dL (70-99) Calcium Level 8.4 mg/dL (8.5-10.1) Triglycerides Level 208 mg/dL (0-150) Cholesterol Level 265 mg/dL (0-200) LDL Cholesterol, Calculated 173 mg/dL (0-100) VLDL Cholesterol, Calculated 42 mg/dL (0-40) Non-HDL Cholesterol Calculated 215 mg/dL (0-129) HDL Cholesterol 50 mg/dL (40-60) Cholesterol/HDL Ratio 5.3 Thyroid Stimulating Hormone (TSH) 1.229 uIU/mL (0.358-3.74) Test 06/08/17 12:02 Glucose (Fingerstick) 129 mg/dL (70-99) Laboratory Tests Test 06/07/17 13:10 06/07/17 15:40 06/07/17 17:43 06/07/17 18:40 White Blood Count 6.1 x10^3/uL (4.0-11.0) Red Blood Count 4.60 x10^6/uL (3.50-5.40) Hemoglobin 12.7 g/dL (12.0-15.5) Hematocrit 38.1 % (36.0-47.0) Mean Corpuscular Volume 83 fL (79-100) Mean Corpuscular Hemoglobin 28 pg (25-35) Mean Corpuscular Hemoglobin Concent 33 g/dL (31-37) Red Cell Distribution Width 14.1 % (11.5-14.5) Platelet Count 230 x10^3/uL (140-400) Neutrophils (%) (Auto) 61 % (31-73) Lymphocytes (%) (Auto) 31 % (24-48) Monocytes (%) (Auto) 6 % (0-9) Eosinophils (%) (Auto) 1 % (0-3) Basophils (%) (Auto) 0 % (0-3) Neutrophils # (Auto) 3.7 x10^3uL (1.8-7.7) Lymphocytes # (Auto) 1.9 x10^3/uL (1.0-4.8) Monocytes # (Auto) 0.4 x10^3/uL (0.0-1.1) Eosinophils # (Auto) 0.1 x10^3/uL (0.0-0.7) Basophils # (Auto) 0.0 x10^3/uL (0.0-0.2) Sodium Level 137 mmol/L (136-145) Potassium Level 3.9 mmol/L (3.5-5.1) Chloride Level 100 mmol/L (98-107) Carbon Dioxide Level 29 mmol/L (21-32) Anion Gap 8 (6-14) Blood Urea Nitrogen 9 mg/dL (7-20) Creatinine 1.0 mg/dL (0.6-1.0) Estimated GFR (Cockcroft-Gault) 69.4 Glucose Level 357 mg/dL (70-99) Calcium Level 9.1 mg/dL (8.5-10.1) Total Bilirubin 0.4 mg/dL (0.2-1.0) Direct Bilirubin 0.1 mg/dL (0.0-0.2) Aspartate Amino Transf (AST/SGOT) 15 U/L (15-37) Alanine Aminotransferase (ALT/SGPT) 19 U/L (14-59) Alkaline Phosphatase 153 U/L (46-116) Troponin I Quantitative < 0.017 ng/mL (0.000-0.055) < 0.017 ng/mL (0.000-0.055) VL-Xdh-J-Type Natriuretic Peptide 229 pg/mL (0-124) Total Protein 7.4 g/dL (6.4-8.2) Albumin 3.3 g/dL (3.4-5.0) Lipase 91 U/L (73-393) Urine Collection Type Unknown Urine Color Yellow Urine Clarity Cloudy Urine pH 5.5 Urine Specific [place] >=1.030 Urine Protein 30 mg/dL (NEG-TRACE) Urine Glucose (UA) >=1000 mg/dL (NEG) Urine Ketones (Stick) Negative mg/dL (NEG) Urine Blood Moderate (NEG) Urine Nitrite Negative (NEG) Urine Bilirubin Negative (NEG) Urine Urobilinogen Dipstick 0.2 mg/dL (0.2 mg/dL) Urine Leukocyte Esterase Large (NEG) Urine RBC 3-5 /HPF (0-2) Urine WBC >40 /HPF (0-4) Urine Squamous Epithelial Cells Few /LPF Urine Bacteria Many /HPF (0-FEW) Urine Opiates Screen Neg (NEG) Urine Methadone Screen Neg (NEG) Urine Barbiturates Neg (NEG) Urine Phencyclidine Screen Neg (NEG) Urine Amphetamine/Methamphetamine Neg (NEG) Urine Benzodiazepines Screen Neg (NEG) Urine Cocaine Screen Pos (NEG) Urine Cannabinoids Screen Neg (NEG) Urine Ethyl Alcohol Neg (NEG) Glucose (Fingerstick) 386 mg/dL (70-99) Test 06/07/17 20:38 06/08/17 01:25 06/08/17 04:00 06/08/17 07:46 Glucose (Fingerstick) 152 mg/dL (70-99) 350 mg/dL (70-99) Troponin I Quantitative < 0.017 ng/mL (0.000-0.055) White Blood Count 4.8 x10^3/uL (4.0-11.0) Red Blood Count 4.20 x10^6/uL (3.50-5.40) Hemoglobin 11.5 g/dL (12.0-15.5) Hematocrit 35.3 % (36.0-47.0) Mean Corpuscular Volume 84 fL (79-100) Mean Corpuscular Hemoglobin 28 pg (25-35) Mean Corpuscular Hemoglobin Concent 33 g/dL (31-37) Red Cell Distribution Width 14.4 % (11.5-14.5) Platelet Count 226 x10^3/uL (140-400) Neutrophils (%) (Auto) 37 % (31-73) Lymphocytes (%) (Auto) 52 % (24-48) Monocytes (%) (Auto) 8 % (0-9) Eosinophils (%) (Auto) 3 % (0-3) Basophils (%) (Auto) 1 % (0-3) Neutrophils # (Auto) 1.8 x10^3uL (1.8-7.7) Lymphocytes # (Auto) 2.5 x10^3/uL (1.0-4.8) Monocytes # (Auto) 0.4 x10^3/uL (0.0-1.1) Eosinophils # (Auto) 0.1 x10^3/uL (0.0-0.7) Basophils # (Auto) 0.0 x10^3/uL (0.0-0.2) Sodium Level 139 mmol/L (136-145) Potassium Level 4.0 mmol/L (3.5-5.1) Chloride Level 103 mmol/L (98-107) Carbon Dioxide Level 32 mmol/L (21-32) Anion Gap 4 (6-14) Blood Urea Nitrogen 12 mg/dL (7-20) Creatinine 0.9 mg/dL (0.6-1.0) Estimated GFR (Cockcroft-Gault) 78.4 Glucose Level 174 mg/dL (70-99) Calcium Level 8.4 mg/dL (8.5-10.1) Triglycerides Level 208 mg/dL (0-150) Cholesterol Level 265 mg/dL (0-200) LDL Cholesterol, Calculated 173 mg/dL (0-100) VLDL Cholesterol, Calculated 42 mg/dL (0-40) Non-HDL Cholesterol Calculated 215 mg/dL (0-129) HDL Cholesterol 50 mg/dL (40-60) Cholesterol/HDL Ratio 5.3 Thyroid Stimulating Hormone (TSH) 1.229 uIU/mL (0.358-3.74) Test 06/08/17 12:02 Glucose (Fingerstick) 129 mg/dL (70-99) Medications Current Medications Nitroglycerin (Nitrostat) 0.4 mg PRN Q5MIN PRN SL CP RATING > 1/10 Last administered on 06/07/17 13:29; Start 06/07/17 at 12:45; Stop 06/08/17 at 12:44 ; Status DC Fentanyl Citrate (Fentanyl 2ml Vial) 25 mcg PRN Q15MIN PRN IV PAIN GREATER THAN 3/10 Last administered on 06/07/17 13:31; Start 06/07/17 at 12:45; Stop at 12:44; Status DC Iohexol (Omnipaque 300 Mg/ml) 75 ml 1X ONCE IV Last administered on 06/07/17 15:00; Start 06/07/17 at 14:30; Stop 06/07/17 at 14:31; Status DC Info (Do NOT chart on this entry -- for MONITORING) 1 each PRN DAILY PRN MC SEE COMMENTS; Start 06/07/17 at 14:30; Stop 06/09/17 at 14:29 Ceftriaxone Sodium 50 ml @ 100 mls/hr 1X ONCE IV Last administered on 16:28; Start 06/07/17 at 16:30; Stop 06/07/17 at 16:59; Status DC Ceftriaxone Sodium 1 gm/ Sodium Chloride 50 ml @ 100 mls/hr Q24H IV ; Start at 17:00 Ondansetron HCl (Zofran) 4 mg PRN Q8HRS PRN IV NAUSEA/VOMITING; Start 06/07/17 at 16:30; Stop 06/08/17 at 16:29 Acetaminophen (Tylenol) 650 mg PRN Q4HRS PRN PO FEVER; Start 06/07/17 at 16:30 ; Stop 06/08/17 at 16:29 Nitroglycerin (Nitrostat) 0.4 mg PRN Q5MIN PRN SL CHEST PAIN; Start 06/07/17 at 16:30; Stop 06/08/17 at 16:29 Insulin Aspart (NovoLOG) 0-5 UNITS TIDWMEALS SQ ; Start 06/07/17 at 17:00; Stop 06/07/17 at 18:50; Status DC Dextrose (Dextrose 50%-Water Syringe) 12.5 gm PRN Q15MIN PRN IV SEE COMMENTS; Start 06/07/17 at 16:30 Fentanyl Citrate (Fentanyl 2ml Vial) 50 mcg PRN Q3HRS PRN IV PAIN Last administered on 06/08/17 02:59; Start 06/07/17 at 16:30 Insulin Aspart (NovoLOG) 40 units 1X ONCE SQ Last administered on 06/07/17 18 :45; Start 06/07/17 at 18:45; Stop 06/07/17 at 18:46; Status DC Insulin Aspart (NovoLOG) 0-9 UNITS TIDWMEALS SQ ; Start 06/08/17 at 08:00; Stop 06/08/17 at 08:00; Status DC Dextrose (Dextrose 50%-Water Syringe) 12.5 gm PRN Q15MIN PRN IV SEE COMMENTS; Start 06/07/17 at 19:00 Acetaminophen (Tylenol) 650 mg PRN Q6HRS PRN PO FEVER; Start 06/07/17 at 19:00 Ondansetron HCl (Zofran) 4 mg PRN Q6HRS PRN IV NAUSEA/VOMITING 1st choice; Start 06/07/17 at 19:00 Hydralazine HCl (Apresoline) 10 mg PRN Q4HRS PRN IVP ELEVATED BP, SEE COMMENTS ; Start 06/07/17 at 19:00 Docusate Sodium (Colace) 100 mg PRN DAILY PRN PO CONSTIPATION; Start 06/07/17 at 19:00 Enoxaparin Sodium (Lovenox 40mg Syringe) 40 mg QHS SQ Last administered on 06/07 20:31; Start 06/07/17 at 21:00 Insulin Aspart (NovoLOG) 0-9 UNITS QIDACHS SQ Last administered on 06/08/17 08 :16; Start 06/07/17 at 21:00 Senna/Docusate Sodium (Senna Plus) 1 tab BID PO Last administered on 06/08/17 08:06; Start 06/07/17 at 21:00 Docusate Sodium (Colace) 100 mg BID PO Last administered on 06/07/17 20:52; Start 06/07/17 at 21:00 Magnesium Hydroxide (Milk Of Magnesia) 2,400 mg PRN Q12HR PRN PO CONSTIPATION; Start 06/07/17 at 19:00 Aspirin (Children'S Aspirin) 81 mg DAILY08 PO Last administered on 06/08/17 08 :07; Start 06/07/17 at 20:00 Cyclobenzaprine HCl (Flexeril) 10 mg PRN TID PRN PO MUSCLE SPASMS; Start at 19:00 Diphenhydramine HCl (Benadryl) 25 mg PRN Q6HRS PRN PO IT; Start 06/07/17 at 19: 00 Famotidine (Pepcid) 20 mg BID PO Last administered on 06/07/17 20:29; Start at 21:00 Ferrous Sulfate (Feosol) 325 mg DAILY08 PO Last administered on 06/08/17 08:07 ; Start 06/07/17 at 20:00 Insulin Aspart (NovoLOG) 40 units TIDAC SQ Last administered on 06/08/17 08:19 ; Start 06/08/17 at 07:30 Pantoprazole Sodium (Protonix) 40 mg BIDAC PO Last administered on 06/08/17 08 :05; Start 06/07/17 at 16:30 Trazodone HCl (Desyrel) 100 mg BID PO Last administered on 06/08/17 08:05; Start 06/07/17 at 21:00 Albuterol Sulfate (Ventolin Neb Soln) 2.5 mg PRN Q4HRS PRN NEB SOA; Start 06/07 at 19:30 Non-Formulary Medication 1 cap TID PO ; Start 06/07/17 at 21:00; Status UNV Insulin Detemir (Levemir) 60 units BID SQ ; Start 06/07/17 at 21:00 Non-Formulary Medication 1 tab QHS PO ; Start 06/07/17 at 21:00; Stop 06/07/17 at 21:00; Status DC Losartan Potassium (Cozaar) 50 mg DAILY PO Last administered on 06/08/17 08:07 ; Start 06/07/17 at 20:00 Lurasidone HCl (Latuda) 80 mg QHS PO Last administered on 06/07/17 20:27; Start 06/07/17 at 21:00 Oxycodone HCl (Roxicodone) 10 mg PRN Q6HRS PRN PO PAIN Last administered on 08:10; Start 06/07/17 at 20:30 Atorvastatin Calcium (Lipitor) 40 mg QHS PO ; Start 06/08/17 at 21:00 Metoprolol Tartrate (Lopressor) 25 mg BID PO ; Start 06/08/17 at 21:00; Status UNV Active Scripts Active Mupirocin Ointment (Mupirocin) 22 Gm Oint...g. 1 Kel TP TID Hydroxyzine Pamoate 50 Mg Capsule 1 Cap PO TID Prednisone 50 Mg Tablet 1 Tab PO DAILY Pepcid (Famotidine) 20 Mg Tablet 20 Mg PO BID 5 Days Protonix (Pantoprazole Sodium) 40 Mg Tablet.dr 1 Tab PO BID Reported Iron Supplement (Ferrous Sulfate) 325 Mg Tablet 1 Tab PO DAILY [losartan Potassium] 50 1 Tab PO DAILY Metoprolol Tartrate 50 Mg Tablet 1 Tab PO BID Ventolin Hfa Inhaler (Albuterol Sulfate) 18 Gm Hfa.aer.ad 2 Puff IH PRN Q4-6HRS Benadryl (Diphenhydramine Hcl) 25 Mg Capsule 25 Mg PO PRN Vitamin E (Vitamin E (Dl,Tocopheryl Acet)) 100 Unit Capsule 100 Unit PO Aspirin 81 Mg Tab.chew 1 Tab PO DAILY Hydrocodone-Apap 7.5-325 (Hydrocodone Bit/Acetaminophen) 1 Each Tablet 1 Tab PO PRN Q6HRS PRN Hydrochlorothiazide Tablet (Hydrochlorothiazide) 25 Mg Tablet 1 Tab PO DAILY Latuda (Lurasidone Hcl) 80 Mg Tablet 1 Tab PO QHS Lantus Solostar (Insulin Glargine,Hum.rec.anlog) 100 Unit/1 Ml Insuln.pen 60 Unit SQ BID Novolog Flexpen (Insulin Aspart) 100 Unit/1 Ml Insuln.pen 40 Unit SQ TIDAC Trazodone Hcl 100 Mg Tablet 100 Mg PO BID Cyclobenzaprine Hcl 10 Mg Tablet 1 Tab PO TID PRN Metformin Hcl 1,000 Mg Tablet 1 Tab PO BID Vitals/I & O Vital Sign - Last 24 Hours 06/07/17 06/07/17 06/07/1706/07/17 13:17 13:29 13:31 14:00 Pulse 93 96 88 Resp 16 18 B/P (MAP) 125/72 115/56 130/79 (96) Pulse Ox 95 O2 Delivery Room Air 06/07/17 06/07/17 06/07/17 06/07/17 15:00 16:29 17:03 17:29 Temp 98.1 98.1 Pulse 88 92 88 91 Resp 18 18 18 18 B/P (MAP) 122/71 (88) 134/63 (86) 134/62 (86) 143/105 (118) Pulse Ox 89 97 94 98 O2 Delivery Room Air Room Air Room Air Room Air 06/07/17 06/07/17 06/07/17 06/07/17 17:30 17:31 17:52 19:00 Temp 98.1 98.1 98.1 98.1 Pulse 91 91 Resp 18 20 B/P (MAP) 143/105 (118) 143/67 (92) Pulse Ox 98 98 98 O2 Delivery Room Air Room Air Room Air 06/07/17 06/07/17 06/07/17 06/07/17 19:33 19:33 20:00 20:07 Pulse Ox 98 98 O2 Delivery Room Air Room Air Room Air Room Air 06/07/17 06/07/17 06/07/17 06/08/17 20:28 20:53 23:00 02:59 Temp 97.6 97.6 Pulse 84 91 Resp 20 20 16 B/P (MAP) 143/67 144/76 (98) Pulse Ox 96 O2 Delivery Nasal Cannula Room Air Room Air 06/08/17 06/08/17 06/08/17 06/08/17 03:15 07:10 08:00 08:07 Temp 97.5 97.7 97.5 97.7 Pulse 87 94 87 Resp 20 18 B/P (MAP) 134/72 (92) 140/62 (88) 134/72 Pulse Ox 97 97 O2 Delivery Room Air Room Air Room Air 06/08/17 06/08/17 06/08/17 08:10 09:11 11:00 Pulse 91 Resp 20 B/P (MAP) 151/83 (105) Pulse Ox 97 97 94 O2 Delivery Room Air Room Air Room Air Intake and Output 06/07/17 06/07/1717 15:00 23:00 07:00 Intake Total 290 ml 600 ml Output Total 600 ml Balance 290 ml 0 ml QUINTON DENG III DO Jun 08, 2017 13:23
--- NOTE | 2017-06-08 14:49 | CARD ---
APPROVED REPORT EXAM: Two-dimensional and M-mode echocardiogram with Doppler and color Doppler. Other Information Quality : Average Rhythm : NSR INDICATION Chest Pain 2D DIMENSIONS RVDd3.1 (2.9-3.5cm)Left Atrium(2D)3.5 (1.6-4.0cm) IVSd1.4 (0.7-1.1cm)Aortic Root(2D)3.3 (2.0-3.7cm) LVDd4.8 (3.9-5.9cm)LVOT Diameter2.1 (1.8-2.4cm) PWd1.4 (0.7-1.1cm)LVDs3.7 (2.5-4.0cm) FS (%) 31.9 %SV48.3 ml LVEF(%)54.0 (>50%) Aortic Valve AoV Peak Serge.105.9cm/sAoV VTI17.7cm AO Peak GR.4.5mmHgLVOT Peak Serge.68.2cm/s LVOT VTI 12.28cmAO Mean GR.3mmHg KISHA (VMAX)2.83fb0ZBO (VTI)2.30cm2 Mitral Valve MV E Tmmwadys43.4cm/sMV DECEL CFRP778ep MV A Fuesasbs23.2cm/sMV MOW02ac E/A Ratio0.8MV A [id number] MVA (PHT)3.36cm2 TDI E/Lateral E'11.1E/Medial E'14.3 Pulmonary Valve PV Peak Hhhyixwx500.4cm/sPV Peak Grad.4mmHg RVOT VTI17.3cm Tricuspid Valve TR P. Hremqofk270pp/sRAP [id number] TR Peak Gr.[id number] LEFT VENTRICLE The left ventricle is normal size. There is mild concentric left ventricular hypertrophy. Left ventri denys systolic function is normal. The Ejection Fraction is 55-60%. There is normal LV segmental wall m otion. Tissue Doppler imaging reveals mild left ventricular diastolic dysfunction. Transmitral Dopple r flow pattern is Grade I-abnormal relaxation pattern. There is no ventricular septal defect visualiz ed. RIGHT VENTRICLE The right ventricle is normal size. The right ventricular systolic function is normal. ATRIA The left atrium size is normal. The right atrium size is normal. The interatrial septum is intact wit h no evidence for an atrial septal defect or patent foramen ovale as noted on 2-D or Doppler imaging. AORTIC VALVE The aortic valve is normal in structure and function. The aortic valve is trileaflet. Doppler and Col or Flow revealed no significant aortic regurgitation. There is no significant aortic valvular stenosi s. MITRAL VALVE The mitral valve is normal in structure and function. There is no mitral valve stenosis. Doppler and Color Flow revealed no mitral valve regurgitation noted. TRICUSPID VALVE The tricuspid valve is normal in structure and function. Doppler and Color Flow revealed mild tricusp id regurgitation. The PA pressure was estimated at 32 mmHg. There is no tricuspid valve stenosis. PULMONIC VALVE The pulmonic valve is not well visualized. Doppler and Color Flow revealed no pulmonic valvular regur gitation. There is no pulmonic valvular stenosis. GREAT VESSELS The aortic root is normal in size. The ascending aorta is normal in size. Normal pulmonary venous michele w (Doppler). The IVC is normal in size and collapses >50% with inspiration. PERICARDIAL EFFUSION There is no evidence of significant pericardial effusion. Critical Notification Critical Value: No <Conclusion> The aortic valve is normal in structure and function. Left ventricle systolic function is normal. The Ejection Fraction is 55-60%. There is normal LV segmental wall motion. Transmitral Doppler flow pattern is Grade I-abnormal relaxation pattern. Mild tricuspid regurgitation. The PA pressure was estimated at 32 mmHg. There is no evidence of significant pericardial effusion.
[2017-06-08 15:04] VITALS: BP 110/86
--- NOTE | 2017-06-08 15:14 | RAD ---
Pelvic ultrasound Indication: Nausea and pain. 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 Technique: Transabdominal ultrasound of the pelvis with Grayscale and color Doppler images. Comparison: Previous CT abdomen/pelvis from 06/07/2017 Findings: The uterus measures 8.0 x 4.2 x 3.1 cm and is within normal limits. Endometrial stripe measures 2 mm and is within normal. The right ovary measures 2.8 x 2.0 x 1.7 cm with evidence of blood flow on color Doppler. The left ovary measures 2.5 x 1.7 x 1.2 cm with evidence of blood flow on color Doppler. No free pelvic fluid. Impression: Only transabdominal ultrasound was performed. 1. Unremarkable uterus. 2. Bilateral ovaries demonstrate evidence of blood flow on color Doppler images.
[2017-06-08] MEDS: IV NORMAL SALINE 1000ML BAG 1,000 ML IV SCH (16:22)
--- NOTE | 2017-06-08 18:29 | PDOC2 ---
CONSULT Date of Consult Date of Consult DATE: 06/08/17 TIME: 18:25 Reason for Consult Reason for Consult: abd pain Referring Physician Referring Physician: Dr. Ferrara Identification/Chief Complaint Chief Complaint ABd pain Problems: Source Source: Chart review, Patient History of Present Illness Reason for Visit: 57 y/o presented to ED with c/o abd pain across lower abd that continue to worsen. She has h/o cocaine and marijuana use. Pt. poor historian. Past Medical History Cardiovascular: CAD, HTN, CA, Hyperlipidemia Pulmonary: Asthma CENTRAL NERVOUS SYSTEM: CVA GI: GERD, Peptic Ulcer disease Heme/Onc: Anemia NOS, Sickle cell trait Hepatobiliary: No pertinent hx Psych: Anxiety, Depression Musculoskeletal: low back pain Rheumatologic: No pertinent hx Infectious disease: No pertinent hx Renal/: No pertinent hx Endocrine: Diabetes Past Surgical History Past Surgical History: Hernia Repair Family History Family History: Family History Unknown Social History <1 pack per day ALCOHOL: none Drugs: Cocaine, Marijuana Current Problem List Problem List Problems Medical Problems: (1) Abdominal pain Status: Acute (2) Chest pain Status: Acute Current Medications Current Medications Current Medications Nitroglycerin (Nitrostat) 0.4 mg PRN Q5MIN PRN SL CP RATING > 1/10 Last administered on 06/07/17 13:29; Start 06/07/17 at 12:45; Stop 06/08/17 at 12:44 ; Status DC Fentanyl Citrate (Fentanyl 2ml Vial) 25 mcg PRN Q15MIN PRN IV PAIN GREATER THAN 3/10 Last administered on 06/07/17 13:31; Start 06/07/17 at 12:45; Stop at 12:44; Status DC Iohexol (Omnipaque 300 Mg/ml) 75 ml 1X ONCE IV Last administered on 06/07/17 15:00; Start 06/07/17 at 14:30; Stop 06/07/17 at 14:31; Status DC Info (Do NOT chart on this entry -- for MONITORING) 1 each PRN DAILY PRN MC SEE COMMENTS; Start 06/07/17 at 14:30; Stop 06/09/17 at 14:29 Ceftriaxone Sodium 50 ml @ 100 mls/hr 1X ONCE IV Last administered on 16:28; Start 06/07/17 at 16:30; Stop 06/07/17 at 16:59; Status DC Ceftriaxone Sodium 1 gm/ Sodium Chloride 50 ml @ 100 mls/hr Q24H IV Last administered on 06/08/17 16:22; Start 06/08/17 at 17:00 Ondansetron HCl (Zofran) 4 mg PRN Q8HRS PRN IV NAUSEA/VOMITING; Start 06/07/17 at 16:30; Stop 06/08/17 at 16:29; Status DC Acetaminophen (Tylenol) 650 mg PRN Q4HRS PRN PO FEVER; Start 06/07/17 at 16:30 ; Stop 06/08/17 at 16:29; Status DC Nitroglycerin (Nitrostat) 0.4 mg PRN Q5MIN PRN SL CHEST PAIN; Start 06/07/17 at 16:30; Stop 06/08/17 at 16:29; Status DC Insulin Aspart (NovoLOG) 0-5 UNITS TIDWMEALS SQ ; Start 06/07/17 at 17:00; Stop 06/07/17 at 18:50; Status DC Dextrose (Dextrose 50%-Water Syringe) 12.5 gm PRN Q15MIN PRN IV SEE COMMENTS; Start 06/07/17 at 16:30 Fentanyl Citrate (Fentanyl 2ml Vial) 50 mcg PRN Q3HRS PRN IV PAIN Last administered on 06/08/17 02:59; Start 06/07/17 at 16:30 Insulin Aspart (NovoLOG) 40 units 1X ONCE SQ Last administered on 06/07/17 18 :45; Start 06/07/17 at 18:45; Stop 06/07/17 at 18:46; Status DC Insulin Aspart (NovoLOG) 0-9 UNITS TIDWMEALS SQ ; Start 06/08/17 at 08:00; Stop 06/08/17 at 08:00; Status DC Dextrose (Dextrose 50%-Water Syringe) 12.5 gm PRN Q15MIN PRN IV SEE COMMENTS; Start 06/07/17 at 19:00 Acetaminophen (Tylenol) 650 mg PRN Q6HRS PRN PO FEVER; Start 06/07/17 at 19:00 Ondansetron HCl (Zofran) 4 mg PRN Q6HRS PRN IV NAUSEA/VOMITING 1st choice; Start 06/07/17 at 19:00 Hydralazine HCl (Apresoline) 10 mg PRN Q4HRS PRN IVP ELEVATED BP, SEE COMMENTS ; Start 06/07/17 at 19:00 Docusate Sodium (Colace) 100 mg PRN DAILY PRN PO CONSTIPATION; Start 06/07/17 at 19:00 Enoxaparin Sodium (Lovenox 40mg Syringe) 40 mg QHS SQ Last administered on 06/07 20:31; Start 06/07/17 at 21:00 Insulin Aspart (NovoLOG) 0-9 UNITS QIDACHS SQ Last administered on 06/08/17 16 :30; Start 06/07/17 at 21:00 Senna/Docusate Sodium (Senna Plus) 1 tab BID PO Last administered on 06/08/17 08:06; Start 06/07/17 at 21:00 Docusate Sodium (Colace) 100 mg BID PO Last administered on 06/07/17 20:52; Start 06/07/17 at 21:00 Magnesium Hydroxide (Milk Of Magnesia) 2,400 mg PRN Q12HR PRN PO CONSTIPATION; Start 06/07/17 at 19:00 Aspirin (Children'S Aspirin) 81 mg DAILY08 PO Last administered on 06/08/17 08 :07; Start 06/07/17 at 20:00 Cyclobenzaprine HCl (Flexeril) 10 mg PRN TID PRN PO MUSCLE SPASMS; Start at 19:00 Diphenhydramine HCl (Benadryl) 25 mg PRN Q6HRS PRN PO IT; Start 06/07/17 at 19: 00 Famotidine (Pepcid) 20 mg BID PO Last administered on 06/07/17 20:29; Start at 21:00 Ferrous Sulfate (Feosol) 325 mg DAILY08 PO Last administered on 06/08/17 08:07 ; Start 06/07/17 at 20:00 Insulin Aspart (NovoLOG) 40 units TIDAC SQ Last administered on 06/08/17 18:13 ; Start 06/08/17 at 07:30 Pantoprazole Sodium (Protonix) 40 mg BIDAC PO Last administered on 06/08/17 16 :29; Start 06/07/17 at 16:30 Trazodone HCl (Desyrel) 100 mg BID PO Last administered on 06/08/17 08:05; Start 06/07/17 at 21:00 Albuterol Sulfate (Ventolin Neb Soln) 2.5 mg PRN Q4HRS PRN NEB SOA; Start 06/07 at 19:30 Non-Formulary Medication 1 cap TID PO ; Start 06/07/17 at 21:00; Status UNV Insulin Detemir (Levemir) 60 units BID SQ ; Start 06/07/17 at 21:00 Non-Formulary Medication 1 tab QHS PO ; Start 06/07/17 at 21:00; Stop 06/07/17 at 21:00; Status DC Losartan Potassium (Cozaar) 50 mg DAILY PO Last administered on 06/08/17 08:07 ; Start 06/07/17 at 20:00 Lurasidone HCl (Latuda) 80 mg QHS PO Last administered on 06/07/17 20:27; Start 06/07/17 at 21:00 Oxycodone HCl (Roxicodone) 10 mg PRN Q6HRS PRN PO PAIN Last administered on 17:47; Start 06/07/17 at 20:30 Atorvastatin Calcium (Lipitor) 40 mg QHS PO ; Start 06/08/17 at 21:00 Metoprolol Tartrate (Lopressor) 25 mg BID PO ; Start 06/08/17 at 21:00; Status UNV Sodium Chloride 1,000 ml @ 75 mls/hr [id number] IV Last administered on 16:22; Start 06/08/17 at 13:30 Active Scripts Active Mupirocin Ointment (Mupirocin) 22 Gm Oint...g. 1 Kel TP TID Hydroxyzine Pamoate 50 Mg Capsule 1 Cap PO TID Prednisone 50 Mg Tablet 1 Tab PO DAILY Pepcid (Famotidine) 20 Mg Tablet 20 Mg PO BID 5 Days Protonix (Pantoprazole Sodium) 40 Mg Tablet.dr 1 Tab PO BID Reported Iron Supplement (Ferrous Sulfate) 325 Mg Tablet 1 Tab PO DAILY [losartan Potassium] 50 1 Tab PO DAILY Metoprolol Tartrate 50 Mg Tablet 1 Tab PO BID Ventolin Hfa Inhaler (Albuterol Sulfate) 18 Gm Hfa.aer.ad 2 Puff IH PRN Q4-6HRS Benadryl (Diphenhydramine Hcl) 25 Mg Capsule 25 Mg PO PRN Vitamin E (Vitamin E (Dl,Tocopheryl Acet)) 100 Unit Capsule 100 Unit PO Aspirin 81 Mg Tab.chew 1 Tab PO DAILY Hydrocodone-Apap 7.5-325 (Hydrocodone Bit/Acetaminophen) 1 Each Tablet 1 Tab PO PRN Q6HRS PRN Hydrochlorothiazide Tablet (Hydrochlorothiazide) 25 Mg Tablet 1 Tab PO DAILY Latuda (Lurasidone Hcl) 80 Mg Tablet 1 Tab PO QHS Lantus Solostar (Insulin Glargine,Hum.rec.anlog) 100 Unit/1 Ml Insuln.pen 60 Unit SQ BID Novolog Flexpen (Insulin Aspart) 100 Unit/1 Ml Insuln.pen 40 Unit SQ TIDAC Trazodone Hcl 100 Mg Tablet 100 Mg PO BID Cyclobenzaprine Hcl 10 Mg Tablet 1 Tab PO TID PRN Metformin Hcl 1,000 Mg Tablet 1 Tab PO BID Allergies Allergies: Coded Allergies: doxycycline (Verified Allergy, Intermediate, Rash, 04/11/17) ketorolac (Unverified Allergy, Intermediate, 07/07/15) lactose (Verified Allergy, Intermediate, 04/25/17) morphine (Unverified Allergy, Intermediate, 07/07/15) Uncoded Allergies: ALL FRESH FRUITS (Allergy, Unknown, 04/25/17) ROS General: YES: Fatigue, Appetite, No: Chills, Night Sweats, Malaise, Other PSYCHOLOGICAL ROS: YES: Anxiety, Concentration difficultie, No: Behavioral Disorder, Decreased libido, Depression, Disorientation, Hallucinations, Hostility, Irritablity, Memory difficulties, Mood Swings, Obsessive thoughts, Physical abuse, Sexual abuse, Sleep disturbances, Suicidal ideation, Other Eyes: No Blurry vision, No Decreased vision, No Double vision, No Dry eyes, No Excessive tearing, No Eye Pain, No Itchy Eyes, No Loss of vision, No Photophobia , No Scotomata, No Uses contacts, No Uses glasses, No Other HEENT: No: Heacaches, Visual Changes, Hearing change, Nasal congestion, Nasal discharge, Oral lesions, Sinus pain, Sore Throat, Epistaxis, Sneezing, Snoring, Tinnitus, Vertigo, Vocal changes, Other ALLERGY AND IMMUNOLOGY: No: Hives, Insect Bite Sensitivity, Itchy/Watery Eyes, Nasal Congestion, Post Nasal Drip, Seasonal Allergies, Other Hematological and Lymphatic: No: Bleeding Problems, Blood Clots, Blood Transfusions, Brusing, Night Sweats, Pallor, Swollen Lymph Nodes, Other ENDOCRINE: No: Breast Changes, Galactorrhea, Hair Pattern Changes, Hot Flashes , Malaise/lethargy, Mood Swings, Palpitations, Polydipsia/polyuria, Skin Changes , Temperature Intolerance, Unexpected Weight Changes, Other Breast: No New/Changing Breast Lumps, No Nipple changes, No Nipple discharge, No Other Respiratory: No: Cough, Hemoptysis, Orthopnea, Pleuritic Pain, Shortness of breath, SOB with excertion, Sputum Changes, Stridor, Tachypnea, Wheezing, Other Cardiovascular: No Chest Pain, No Palpitations, No Orthopnea, No Paroxysmal Noc. Dyspnea, No Edema, No Lt Headedness, No Other Gastrointestinal: Yes Abdominal Pain, Yes Constipation, No Nausea, No Vomiting, No Diarrhea, No Melena, No Hematochezia, No Other Genitourinary: No Dysuria, No Frequency, No Incontinence, No Hematuria, No Retention, No Discharge, No Urgency, No Pain, No Flank Pain, No Other, No , No , No , No , No , No , No Physical Exam General: Alert, Cooperative HEENT: Atraumatic Lungs: Clear to auscultation Heart: Regular rate Abdomen: Normal bowel sounds, Soft, No masses Vitals VITALS Vital Signs Date Time Temp Pulse Resp B/P (MAP) Pulse Ox O2 Delivery O2 Flow Rate FiO2 06/08/17 17:47 98 Room Air 06/08/17 15:04 98.1 96 20 110/86 (94) 98.1 Labs Labs Laboratory Tests Test 06/07/17 13:10 06/07/17 15:40 06/07/17 17:43 06/07/17 18:40 White Blood Count 6.1 x10^3/uL (4.0-11.0) Red Blood Count 4.60 x10^6/uL (3.50-5.40) Hemoglobin 12.7 g/dL (12.0-15.5) Hematocrit 38.1 % (36.0-47.0) Mean Corpuscular Volume 83 fL (79-100) Mean Corpuscular Hemoglobin 28 pg (25-35) Mean Corpuscular Hemoglobin Concent 33 g/dL (31-37) Red Cell Distribution Width 14.1 % (11.5-14.5) Platelet Count 230 x10^3/uL (140-400) Neutrophils (%) (Auto) 61 % (31-73) Lymphocytes (%) (Auto) 31 % (24-48) Monocytes (%) (Auto) 6 % (0-9) Eosinophils (%) (Auto) 1 % (0-3) Basophils (%) (Auto) 0 % (0-3) Neutrophils # (Auto) 3.7 x10^3uL (1.8-7.7) Lymphocytes # (Auto) 1.9 x10^3/uL (1.0-4.8) Monocytes # (Auto) 0.4 x10^3/uL (0.0-1.1) Eosinophils # (Auto) 0.1 x10^3/uL (0.0-0.7) Basophils # (Auto) 0.0 x10^3/uL (0.0-0.2) Sodium Level 137 mmol/L (136-145) Potassium Level 3.9 mmol/L (3.5-5.1) Chloride Level 100 mmol/L (98-107) Carbon Dioxide Level 29 mmol/L (21-32) Anion Gap 8 (6-14) Blood Urea Nitrogen 9 mg/dL (7-20) Creatinine 1.0 mg/dL (0.6-1.0) Estimated GFR (Cockcroft-Gault) 69.4 Glucose Level 357 mg/dL (70-99) Calcium Level 9.1 mg/dL (8.5-10.1) Total Bilirubin 0.4 mg/dL (0.2-1.0) Direct Bilirubin 0.1 mg/dL (0.0-0.2) Aspartate Amino Transf (AST/SGOT) 15 U/L (15-37) Alanine Aminotransferase (ALT/SGPT) 19 U/L (14-59) Alkaline Phosphatase 153 U/L (46-116) Troponin I Quantitative < 0.017 ng/mL (0.000-0.055) < 0.017 ng/mL (0.000-0.055) IO-Rfu-A-Type Natriuretic Peptide 229 pg/mL (0-124) Total Protein 7.4 g/dL (6.4-8.2) Albumin 3.3 g/dL (3.4-5.0) Lipase 91 U/L (73-393) Urine Collection Type Unknown Urine Color Yellow Urine Clarity Cloudy Urine pH 5.5 Urine Specific [place] >=1.030 Urine Protein 30 mg/dL (NEG-TRACE) Urine Glucose (UA) >=1000 mg/dL (NEG) Urine Ketones (Stick) Negative mg/dL (NEG) Urine Blood Moderate (NEG) Urine Nitrite Negative (NEG) Urine Bilirubin Negative (NEG) Urine Urobilinogen Dipstick 0.2 mg/dL (0.2 mg/dL) Urine Leukocyte Esterase Large (NEG) Urine RBC 3-5 /HPF (0-2) Urine WBC >40 /HPF (0-4) Urine Squamous Epithelial Cells Few /LPF Urine Bacteria Many /HPF (0-FEW) Urine Opiates Screen Neg (NEG) Urine Methadone Screen Neg (NEG) Urine Barbiturates Neg (NEG) Urine Phencyclidine Screen Neg (NEG) Urine Amphetamine/Methamphetamine Neg (NEG) Urine Benzodiazepines Screen Neg (NEG) Urine Cocaine Screen Pos (NEG) Urine Cannabinoids Screen Neg (NEG) Urine Ethyl Alcohol Neg (NEG) Glucose (Fingerstick) 386 mg/dL (70-99) Test 06/07/17 20:38 06/08/17 01:25 06/08/17 04:00 06/08/17 07:46 Glucose (Fingerstick) 152 mg/dL (70-99) 350 mg/dL (70-99) Troponin I Quantitative < 0.017 ng/mL (0.000-0.055) White Blood Count 4.8 x10^3/uL (4.0-11.0) Red Blood Count 4.20 x10^6/uL (3.50-5.40) Hemoglobin 11.5 g/dL (12.0-15.5) Hematocrit 35.3 % (36.0-47.0) Mean Corpuscular Volume 84 fL (79-100) Mean Corpuscular Hemoglobin 28 pg (25-35) Mean Corpuscular Hemoglobin Concent 33 g/dL (31-37) Red Cell Distribution Width 14.4 % (11.5-14.5) Platelet Count 226 x10^3/uL (140-400) Neutrophils (%) (Auto) 37 % (31-73) Lymphocytes (%) (Auto) 52 % (24-48) Monocytes (%) (Auto) 8 % (0-9) Eosinophils (%) (Auto) 3 % (0-3) Basophils (%) (Auto) 1 % (0-3) Neutrophils # (Auto) 1.8 x10^3uL (1.8-7.7) Lymphocytes # (Auto) 2.5 x10^3/uL (1.0-4.8) Monocytes # (Auto) 0.4 x10^3/uL (0.0-1.1) Eosinophils # (Auto) 0.1 x10^3/uL (0.0-0.7) Basophils # (Auto) 0.0 x10^3/uL (0.0-0.2) Sodium Level 139 mmol/L (136-145) Potassium Level 4.0 mmol/L (3.5-5.1) Chloride Level 103 mmol/L (98-107) Carbon Dioxide Level 32 mmol/L (21-32) Anion Gap 4 (6-14) Blood Urea Nitrogen 12 mg/dL (7-20) Creatinine 0.9 mg/dL (0.6-1.0) Estimated GFR (Cockcroft-Gault) 78.4 Glucose Level 174 mg/dL (70-99) Calcium Level 8.4 mg/dL (8.5-10.1) Triglycerides Level 208 mg/dL (0-150) Cholesterol Level 265 mg/dL (0-200) LDL Cholesterol, Calculated 173 mg/dL (0-100) VLDL Cholesterol, Calculated 42 mg/dL (0-40) Non-HDL Cholesterol Calculated 215 mg/dL (0-129) HDL Cholesterol 50 mg/dL (40-60) Cholesterol/HDL Ratio 5.3 Thyroid Stimulating Hormone (TSH) 1.229 uIU/mL (0.358-3.74) Test 06/08/17 12:02 06/08/17 17:21 Glucose (Fingerstick) 129 mg/dL (70-99) 412 mg/dL (70-99) Laboratory Tests Test 06/07/17 18:40 06/07/17 20:38 06/08/17 01:25 06/08/17 04:00 Troponin I Quantitative < 0.017 ng/mL (0.000-0.055) < 0.017 ng/mL (0.000-0.055) Glucose (Fingerstick) 152 mg/dL (70-99) White Blood Count 4.8 x10^3/uL (4.0-11.0) Red Blood Count 4.20 x10^6/uL (3.50-5.40) Hemoglobin 11.5 g/dL (12.0-15.5) Hematocrit 35.3 % (36.0-47.0) Mean Corpuscular Volume 84 fL (79-100) Mean Corpuscular Hemoglobin 28 pg (25-35) Mean Corpuscular Hemoglobin Concent 33 g/dL (31-37) Red Cell Distribution Width 14.4 % (11.5-14.5) Platelet Count 226 x10^3/uL (140-400) Neutrophils (%) (Auto) 37 % (31-73) Lymphocytes (%) (Auto) 52 % (24-48) Monocytes (%) (Auto) 8 % (0-9) Eosinophils (%) (Auto) 3 % (0-3) Basophils (%) (Auto) 1 % (0-3) Neutrophils # (Auto) 1.8 x10^3uL (1.8-7.7) Lymphocytes # (Auto) 2.5 x10^3/uL (1.0-4.8) Monocytes # (Auto) 0.4 x10^3/uL (0.0-1.1) Eosinophils # (Auto) 0.1 x10^3/uL (0.0-0.7) Basophils # (Auto) 0.0 x10^3/uL (0.0-0.2) Sodium Level 139 mmol/L (136-145) Potassium Level 4.0 mmol/L (3.5-5.1) Chloride Level 103 mmol/L (98-107) Carbon Dioxide Level 32 mmol/L (21-32) Anion Gap 4 (6-14) Blood Urea Nitrogen 12 mg/dL (7-20) Creatinine 0.9 mg/dL (0.6-1.0) Estimated GFR (Cockcroft-Gault) 78.4 Glucose Level 174 mg/dL (70-99) Calcium Level 8.4 mg/dL (8.5-10.1) Triglycerides Level 208 mg/dL (0-150) Cholesterol Level 265 mg/dL (0-200) LDL Cholesterol, Calculated 173 mg/dL (0-100) VLDL Cholesterol, Calculated 42 mg/dL (0-40) Non-HDL Cholesterol Calculated 215 mg/dL (0-129) HDL Cholesterol 50 mg/dL (40-60) Cholesterol/HDL Ratio 5.3 Thyroid Stimulating Hormone (TSH) 1.229 uIU/mL (0.358-3.74) Test 06/08/17 07:46 06/08/17 12:02 06/08/17 17:21 Glucose (Fingerstick) 350 mg/dL (70-99) 129 mg/dL (70-99) 412 mg/dL (70-99) Assessment/Plan Assessment/Plan A: Abd pain: improving P: Pelvic sono indicated good flow to both ovaries. Pelvic phleboliths more of incidental finding. Continue current care. Thank you for consult. ARMANDO HARRY Jr, MD Jun 08, 2017 18:29
[2017-06-08 19:00] VITALS: BP 137/73
[2017-06-08] MEDS: ENOXAPARIN 40 MG/0.4 ML SYRINGE. SQ SCH (20:25)
[2017-06-08] MEDS: LURASIDONE 40 MG TABLET. PO SCH (20:25)
[2017-06-08] MEDS: CYCLOBENZAPRINE 10 MG TABLET. PO PRN (20:31)
[2017-06-08] MEDS ORDERED: ATORVASTATIN CALCIUM 40 MG TABLET. PO SCH (21:00)
[2017-06-08] MEDS ORDERED: METOPROLOL TART IMMED RELEASE 25 MG TABLET. PO SCH (21:00)
[2017-06-08 22:49] VITALS: BP 118/71
[2017-06-09] MEDS: IV NORMAL SALINE 1000ML BAG 1,000 ML IV SCH ×2 (02:50→05:36)
[2017-06-09 03:00] VITALS: BP 131/76
[2017-06-09 07:00] VITALS: BP 124/74
[2017-06-09 08:31] VITALS: BP 124/74
[2017-06-09] MEDS: LOSARTAN POTASSIUM 50 MG TABLET. PO SCH (08:31)
[2017-06-09] MEDS: ASPIRIN CHEWABLE 81 MG TABLET. PO SCH (08:31)
[2017-06-09] MEDS: traZODone 100 MG TABLET. PO SCH (08:31)
[2017-06-09] MEDS: SENNOSIDES/DOCUSATE 8.6/50MG TABLET. PO SCH (08:31)
[2017-06-09] MEDS: PANTOPRAZOLE 40 MG TABLET.DR. PO SCH (08:31)
[2017-06-09] MEDS: FERROUS SULFATE 325 MG TABLET. PO SCH (08:32)
[2017-06-09] MEDS: FAMOTIDINE 20 MG TABLET. PO SCH (08:32)
[2017-06-09] MEDS: DOCUSATE SODIUM 100 MG CAPSULE. PO SCH (08:32)
[2017-06-09] MEDS: oxyCODONE IR 5 MG TABLET PO PRN (08:37)
[2017-06-09] MEDS: CYCLOBENZAPRINE 10 MG TABLET. PO PRN (08:37)
[2017-06-09] MEDS: INSULIN ASPART 300 UNITS/3 ML INSULN.PEN SQ SCH ×2 (08:44→08:45)
[2017-06-09] MEDS: INSULIN DETEMIR 300 UNITS/3 ML INSULN.PEN. SQ SCH (08:46)
[2017-06-09 08:51] LABS: BASO % 1 % (0-3); EOS % 3 % (0-3); HEMATOCRIT 33.9 % (36.0-47.0); HEMOGLOBIN 11.6 g/dL (12.0-15.5); LYMPH # 2.1 x10^3/uL (1.0-4.8); LYMPH % 52 % (24-48); MEAN CORPUSCULAR HEMOGLOBIN 28 pg (25-35); MEAN CORPUSCULAR HGB CONC 34 g/dL (31-37); MEAN CORPUSCULAR VOLUME 82 fL (79-100); MONO % 6 % (0-9); NEUT % 39 % (31-73); PLATELET COUNT 217 x10^3/uL (140-400); RED BLOOD COUNT 4.14 x10^6/uL (3.50-5.40); RED CELL DISTRIBUTION WIDTH 14.2 % (11.5-14.5)
[2017-06-09 09:06] LABS: CALCIUM 8.5 mg/dL (8.5-10.1); CREATININE 0.9 mg/dL (0.6-1.0); GFR 78.4; POTASSIUM 5.1 mmol/L (3.5-5.1)
--- NOTE | 2017-06-09 12:47 | PDOC ---
PROGRESS NOTES Chief Complaint Chief Complaint CC: Chest pain Anemia CAD HTN HLD PUD Sickle cell trait DM Asthma Depression History of Present Illness History of Present Illness Pt was admitted for chest pain that has since resolved. UTI showed gram negative rods. Gonadal vein thrombophlebitis is likely incidental finding, pelvic sonography showed good blood flow. Vitals Vitals Vital Signs Date Time Temp Pulse Resp B/P (MAP) Pulse Ox O2 Delivery O2 Flow Rate FiO2 06/09/17 09:35 20 97 Room Air 06/09/17 08:31 83 124/74 06/09/17 07:00 98.2 98.2 Physical Exam General: Alert, Cooperative Heart: Regular rate Abdomen: Normal bowel sounds, Soft, No masses Extremities: No cyanosis, No edema Skin: No breakdown, No significant lesion Labs LABS Laboratory Tests Test 06/08/17 17:21 06/08/17 20:24 06/09/17 07:33 06/09/17 08:20 Glucose (Fingerstick) 412 mg/dL (70-99) 220 mg/dL (70-99) 265 mg/dL (70-99) White Blood Count 4.0 x10^3/uL (4.0-11.0) Red Blood Count 4.14 x10^6/uL (3.50-5.40) Hemoglobin 11.6 g/dL (12.0-15.5) Hematocrit 33.9 % (36.0-47.0) Mean Corpuscular Volume 82 fL (79-100) Mean Corpuscular Hemoglobin 28 pg (25-35) Mean Corpuscular Hemoglobin Concent 34 g/dL (31-37) Red Cell Distribution Width 14.2 % (11.5-14.5) Platelet Count 217 x10^3/uL (140-400) Neutrophils (%) (Auto) 39 % (31-73) Lymphocytes (%) (Auto) 52 % (24-48) Monocytes (%) (Auto) 6 % (0-9) Eosinophils (%) (Auto) 3 % (0-3) Basophils (%) (Auto) 1 % (0-3) Neutrophils # (Auto) 1.6 x10^3uL (1.8-7.7) Lymphocytes # (Auto) 2.1 x10^3/uL (1.0-4.8) Monocytes # (Auto) 0.2 x10^3/uL (0.0-1.1) Eosinophils # (Auto) 0.1 x10^3/uL (0.0-0.7) Basophils # (Auto) 0.0 x10^3/uL (0.0-0.2) Sodium Level 136 mmol/L (136-145) Potassium Level 5.1 mmol/L (3.5-5.1) Chloride Level 100 mmol/L (98-107) Carbon Dioxide Level 31 mmol/L (21-32) Anion Gap 5 (6-14) Blood Urea Nitrogen 14 mg/dL (7-20) Creatinine 0.9 mg/dL (0.6-1.0) Estimated GFR (Cockcroft-Gault) 78.4 Glucose Level 266 mg/dL (70-99) Calcium Level 8.5 mg/dL (8.5-10.1) Review of Systems Review of Systems Complains of abd pain Complains of MANN Complains of back pain Assessment and Plan Assessmemt and Plan Problems Medical Problems: (1) Abdominal pain Status: Acute (2) Chest pain Status: Acute CC: Chest pain: Negative CXR and troponin, sinus EKG, consulted cards ( appreciate the assistance) UTI: Continue IVF, DC with Augmentin 875 bid X10d Abd pain: Pelvic sonography showed good flow, 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 Labs Laboratory Tests Test 06/07/17 13:10 06/07/17 15:40 06/07/17 17:43 06/07/17 18:40 White Blood Count 6.1 x10^3/uL (4.0-11.0) Red Blood Count 4.60 x10^6/uL (3.50-5.40) Hemoglobin 12.7 g/dL (12.0-15.5) Hematocrit 38.1 % (36.0-47.0) Mean Corpuscular Volume 83 fL (79-100) Mean Corpuscular Hemoglobin 28 pg (25-35) Mean Corpuscular Hemoglobin Concent 33 g/dL (31-37) Red Cell Distribution Width 14.1 % (11.5-14.5) Platelet Count 230 x10^3/uL (140-400) Neutrophils (%) (Auto) 61 % (31-73) Lymphocytes (%) (Auto) 31 % (24-48) Monocytes (%) (Auto) 6 % (0-9) Eosinophils (%) (Auto) 1 % (0-3) Basophils (%) (Auto) 0 % (0-3) Neutrophils # (Auto) 3.7 x10^3uL (1.8-7.7) Lymphocytes # (Auto) 1.9 x10^3/uL (1.0-4.8) Monocytes # (Auto) 0.4 x10^3/uL (0.0-1.1) Eosinophils # (Auto) 0.1 x10^3/uL (0.0-0.7) Basophils # (Auto) 0.0 x10^3/uL (0.0-0.2) Sodium Level 137 mmol/L (136-145) Potassium Level 3.9 mmol/L (3.5-5.1) Chloride Level 100 mmol/L (98-107) Carbon Dioxide Level 29 mmol/L (21-32) Anion Gap 8 (6-14) Blood Urea Nitrogen 9 mg/dL (7-20) Creatinine 1.0 mg/dL (0.6-1.0) Estimated GFR (Cockcroft-Gault) 69.4 Glucose Level 357 mg/dL (70-99) Calcium Level 9.1 mg/dL (8.5-10.1) Total Bilirubin 0.4 mg/dL (0.2-1.0) Direct Bilirubin 0.1 mg/dL (0.0-0.2) Aspartate Amino Transf (AST/SGOT) 15 U/L (15-37) Alanine Aminotransferase (ALT/SGPT) 19 U/L (14-59) Alkaline Phosphatase 153 U/L (46-116) Troponin I Quantitative < 0.017 ng/mL (0.000-0.055) < 0.017 ng/mL (0.000-0.055) KK-Vnk-V-Type Natriuretic Peptide 229 pg/mL (0-124) Total Protein 7.4 g/dL (6.4-8.2) Albumin 3.3 g/dL (3.4-5.0) Lipase 91 U/L (73-393) Urine Collection Type Unknown Urine Color Yellow Urine Clarity Cloudy Urine pH 5.5 Urine Specific Colver >=1.030 Urine Protein 30 mg/dL (NEG-TRACE) Urine Glucose (UA) >=1000 mg/dL (NEG) Urine Ketones (Stick) Negative mg/dL (NEG) Urine Blood Moderate (NEG) Urine Nitrite Negative (NEG) Urine Bilirubin Negative (NEG) Urine Urobilinogen Dipstick 0.2 mg/dL (0.2 mg/dL) Urine Leukocyte Esterase Large (NEG) Urine RBC 3-5 /HPF (0-2) Urine WBC >40 /HPF (0-4) Urine Squamous Epithelial Cells Few /LPF Urine Bacteria Many /HPF (0-FEW) Urine Opiates Screen Neg (NEG) Urine Methadone Screen Neg (NEG) Urine Barbiturates Neg (NEG) Urine Phencyclidine Screen Neg (NEG) Urine Amphetamine/Methamphetamine Neg (NEG) Urine Benzodiazepines Screen Neg (NEG) Urine Cocaine Screen Pos (NEG) Urine Cannabinoids Screen Neg (NEG) Urine Ethyl Alcohol Neg (NEG) Glucose (Fingerstick) 386 mg/dL (70-99) Test 06/07/17 20:38 06/08/17 01:25 06/08/17 04:00 06/08/17 07:46 Glucose (Fingerstick) 152 mg/dL (70-99) 350 mg/dL (70-99) Troponin I Quantitative < 0.017 ng/mL (0.000-0.055) White Blood Count 4.8 x10^3/uL (4.0-11.0) Red Blood Count 4.20 x10^6/uL (3.50-5.40) Hemoglobin 11.5 g/dL (12.0-15.5) Hematocrit 35.3 % (36.0-47.0) Mean Corpuscular Volume 84 fL (79-100) Mean Corpuscular Hemoglobin 28 pg (25-35) Mean Corpuscular Hemoglobin Concent 33 g/dL (31-37) Red Cell Distribution Width 14.4 % (11.5-14.5) Platelet Count 226 x10^3/uL (140-400) Neutrophils (%) (Auto) 37 % (31-73) Lymphocytes (%) (Auto) 52 % (24-48) Monocytes (%) (Auto) 8 % (0-9) Eosinophils (%) (Auto) 3 % (0-3) Basophils (%) (Auto) 1 % (0-3) Neutrophils # (Auto) 1.8 x10^3uL (1.8-7.7) Lymphocytes # (Auto) 2.5 x10^3/uL (1.0-4.8) Monocytes # (Auto) 0.4 x10^3/uL (0.0-1.1) Eosinophils # (Auto) 0.1 x10^3/uL (0.0-0.7) Basophils # (Auto) 0.0 x10^3/uL (0.0-0.2) Sodium Level 139 mmol/L (136-145) Potassium Level 4.0 mmol/L (3.5-5.1) Chloride Level 103 mmol/L (98-107) Carbon Dioxide Level 32 mmol/L (21-32) Anion Gap 4 (6-14) Blood Urea Nitrogen 12 mg/dL (7-20) Creatinine 0.9 mg/dL (0.6-1.0) Estimated GFR (Cockcroft-Gault) 78.4 Glucose Level 174 mg/dL (70-99) Hemoglobin A1c 13.1 % (4.8-5.6) Calcium Level 8.4 mg/dL (8.5-10.1) Triglycerides Level 208 mg/dL (0-150) Cholesterol Level 265 mg/dL (0-200) LDL Cholesterol, Calculated 173 mg/dL (0-100) VLDL Cholesterol, Calculated 42 mg/dL (0-40) Non-HDL Cholesterol Calculated 215 mg/dL (0-129) HDL Cholesterol 50 mg/dL (40-60) Cholesterol/HDL Ratio 5.3 Thyroid Stimulating Hormone (TSH) 1.229 uIU/mL (0.358-3.74) Test 06/08/17 12:02 06/08/17 17:21 06/08/17 20:24 06/09/17 07:33 Glucose (Fingerstick) 129 mg/dL (70-99) 412 mg/dL (70-99) 220 mg/dL (70-99) 265 mg/dL (70-99) Test 06/09/17 08:20 White Blood Count 4.0 x10^3/uL (4.0-11.0) Red Blood Count 4.14 x10^6/uL (3.50-5.40) Hemoglobin 11.6 g/dL (12.0-15.5) Hematocrit 33.9 % (36.0-47.0) Mean Corpuscular Volume 82 fL (79-100) Mean Corpuscular Hemoglobin 28 pg (25-35) Mean Corpuscular Hemoglobin Concent 34 g/dL (31-37) Red Cell Distribution Width 14.2 % (11.5-14.5) Platelet Count 217 x10^3/uL (140-400) Neutrophils (%) (Auto) 39 % (31-73) Lymphocytes (%) (Auto) 52 % (24-48) Monocytes (%) (Auto) 6 % (0-9) Eosinophils (%) (Auto) 3 % (0-3) Basophils (%) (Auto) 1 % (0-3) Neutrophils # (Auto) 1.6 x10^3uL (1.8-7.7) Lymphocytes # (Auto) 2.1 x10^3/uL (1.0-4.8) Monocytes # (Auto) 0.2 x10^3/uL (0.0-1.1) Eosinophils # (Auto) 0.1 x10^3/uL (0.0-0.7) Basophils # (Auto) 0.0 x10^3/uL (0.0-0.2) Sodium Level 136 mmol/L (136-145) Potassium Level 5.1 mmol/L (3.5-5.1) Chloride Level 100 mmol/L (98-107) Carbon Dioxide Level 31 mmol/L (21-32) Anion Gap 5 (6-14) Blood Urea Nitrogen 14 mg/dL (7-20) Creatinine 0.9 mg/dL (0.6-1.0) Estimated GFR (Cockcroft-Gault) 78.4 Glucose Level 266 mg/dL (70-99) Calcium Level 8.5 mg/dL (8.5-10.1) Laboratory Tests Test 06/08/17 17:21 06/08/17 20:24 8/25/17 07:33 06/09/17 08:20 Glucose (Fingerstick) 412 mg/dL (70-99) 220 mg/dL (70-99) 265 mg/dL (70-99) White Blood Count 4.0 x10^3/uL (4.0-11.0) Red Blood Count 4.14 x10^6/uL (3.50-5.40) Hemoglobin 11.6 g/dL (12.0-15.5) Hematocrit 33.9 % (36.0-47.0) Mean Corpuscular Volume 82 fL (79-100) Mean Corpuscular Hemoglobin 28 pg (25-35) Mean Corpuscular Hemoglobin Concent 34 g/dL (31-37) Red Cell Distribution Width 14.2 % (11.5-14.5) Platelet Count 217 x10^3/uL (140-400) Neutrophils (%) (Auto) 39 % (31-73) Lymphocytes (%) (Auto) 52 % (24-48) Monocytes (%) (Auto) 6 % (0-9) Eosinophils (%) (Auto) 3 % (0-3) Basophils (%) (Auto) 1 % (0-3) Neutrophils # (Auto) 1.6 x10^3uL (1.8-7.7) Lymphocytes # (Auto) 2.1 x10^3/uL (1.0-4.8) Monocytes # (Auto) 0.2 x10^3/uL (0.0-1.1) Eosinophils # (Auto) 0.1 x10^3/uL (0.0-0.7) Basophils # (Auto) 0.0 x10^3/uL (0.0-0.2) Sodium Level 136 mmol/L (136-145) Potassium Level 5.1 mmol/L (3.5-5.1) Chloride Level 100 mmol/L (98-107) Carbon Dioxide Level 31 mmol/L (21-32) Anion Gap 5 (6-14) Blood Urea Nitrogen 14 mg/dL (7-20) Creatinine 0.9 mg/dL (0.6-1.0) Estimated GFR (Cockcroft-Gault) 78.4 Glucose Level 266 mg/dL (70-99) Calcium Level 8.5 mg/dL (8.5-10.1) Microbiology 06/07/17 Urine Culture - Preliminary, Resulted 06/07/17 Urine Culture Result 1 (MAYNOR) - Preliminary, Resulted Medications Current Medications Nitroglycerin (Nitrostat) 0.4 mg PRN Q5MIN PRN SL CP RATING > 1/10 Last administered on 06/07/17 13:29; Start 06/07/17 at 12:45; Stop 06/08/17 at 12:44 ; Status DC Fentanyl Citrate (Fentanyl 2ml Vial) 25 mcg PRN Q15MIN PRN IV PAIN GREATER THAN 3/10 Last administered on 06/07/17 13:31; Start 06/07/17 at 12:45; Stop at 12:44; Status DC Iohexol (Omnipaque 300 Mg/ml) 75 ml 1X ONCE IV Last administered on 06/07/17 15:00; Start 06/07/17 at 14:30; Stop 06/07/17 at 14:31; Status DC Info (Do NOT chart on this entry -- for MONITORING) 1 each PRN DAILY PRN MC SEE COMMENTS; Start 06/07/17 at 14:30; Stop 06/09/17 at 14:29 Ceftriaxone Sodium 50 ml @ 100 mls/hr 1X ONCE IV Last administered on 16:28; Start 06/07/17 at 16:30; Stop 06/07/17 at 16:59; Status DC Ceftriaxone Sodium 1 gm/ Sodium Chloride 50 ml @ 100 mls/hr Q24H IV Last administered on 06/08/17 16:22; Start 06/08/17 at 17:00 Ondansetron HCl (Zofran) 4 mg PRN Q8HRS PRN IV NAUSEA/VOMITING; Start 06/07/17 at 16:30; Stop 06/08/17 at 16:29; Status DC Acetaminophen (Tylenol) 650 mg PRN Q4HRS PRN PO FEVER; Start 06/07/17 at 16:30 ; Stop 06/08/17 at 16:29; Status DC Nitroglycerin (Nitrostat) 0.4 mg PRN Q5MIN PRN SL CHEST PAIN; Start 06/07/17 at 16:30; Stop 06/08/17 at 16:29; Status DC Insulin Aspart (NovoLOG) 0-5 UNITS TIDWMEALS SQ ; Start 06/07/17 at 17:00; Stop 06/07/17 at 18:50; Status DC Dextrose (Dextrose 50%-Water Syringe) 12.5 gm PRN Q15MIN PRN IV SEE COMMENTS; Start 06/07/17 at 16:30 Fentanyl Citrate (Fentanyl 2ml Vial) 50 mcg PRN Q3HRS PRN IV PAIN Last administered on 06/08/17 02:59; Start 06/07/17 at 16:30 Insulin Aspart (NovoLOG) 40 units 1X ONCE SQ Last administered on 06/07/17 18 :45; Start 06/07/17 at 18:45; Stop 06/07/17 at 18:46; Status DC Insulin Aspart (NovoLOG) 0-9 UNITS TIDWMEALS SQ ; Start 06/08/17 at 08:00; Stop 06/08/17 at 08:00; Status DC Dextrose (Dextrose 50%-Water Syringe) 12.5 gm PRN Q15MIN PRN IV SEE COMMENTS; Start 06/07/17 at 19:00 Acetaminophen (Tylenol) 650 mg PRN Q6HRS PRN PO FEVER; Start 06/07/17 at 19:00 Ondansetron HCl (Zofran) 4 mg PRN Q6HRS PRN IV NAUSEA/VOMITING 1st choice; Start 06/07/17 at 19:00 Hydralazine HCl (Apresoline) 10 mg PRN Q4HRS PRN IVP ELEVATED BP, SEE COMMENTS ; Start 06/07/17 at 19:00 Docusate Sodium (Colace) 100 mg PRN DAILY PRN PO CONSTIPATION; Start 06/07/17 at 19:00 Enoxaparin Sodium (Lovenox 40mg Syringe) 40 mg QHS SQ Last administered on 06/08 20:25; Start 06/07/17 at 21:00 Insulin Aspart (NovoLOG) 0-9 UNITS QIDACHS SQ Last administered on 06/09/17 08 :44; Start 06/07/17 at 21:00 Senna/Docusate Sodium (Senna Plus) 1 tab BID PO Last administered on 06/09/17 08:31; Start 06/07/17 at 21:00 Docusate Sodium (Colace) 100 mg BID PO Last administered on 06/09/17 08:32; Start 06/07/17 at 21:00 Magnesium Hydroxide (Milk Of Magnesia) 2,400 mg PRN Q12HR PRN PO CONSTIPATION; Start 06/07/17 at 19:00 Aspirin (Children'S Aspirin) 81 mg DAILY08 PO Last administered on 06/09/17 08 :31; Start 06/07/17 at 20:00 Cyclobenzaprine HCl (Flexeril) 10 mg PRN TID PRN PO MUSCLE SPASMS Last administered on 06/09/17 08:37; Start 06/07/17 at 19:00 Diphenhydramine HCl (Benadryl) 25 mg PRN Q6HRS PRN PO IT; Start 06/07/17 at 19: 00 Famotidine (Pepcid) 20 mg BID PO Last administered on 06/09/17 08:32; Start at 21:00 Ferrous Sulfate (Feosol) 325 mg DAILY08 PO Last administered on 06/09/17 08:32 ; Start 06/07/17 at 20:00 Insulin Aspart (NovoLOG) 40 units TIDAC SQ Last administered on 06/09/17 08:45 ; Start 06/08/17 at 07:30 Pantoprazole Sodium (Protonix) 40 mg BIDAC PO Last administered on 06/09/17 08 :31; Start 06/07/17 at 16:30 Trazodone HCl (Desyrel) 100 mg BID PO Last administered on 06/09/17 08:31; Start 06/07/17 at 21:00 Albuterol Sulfate (Ventolin Neb Soln) 2.5 mg PRN Q4HRS PRN NEB SOA; Start 06/07 at 19:30 Non-Formulary Medication 1 cap TID PO ; Start 06/07/17 at 21:00; Status UNV Insulin Detemir (Levemir) 60 units BID SQ ; Start 06/07/17 at 21:00 Non-Formulary Medication 1 tab QHS PO ; Start 06/07/17 at 21:00; Stop 06/07/17 at 21:00; Status DC Losartan Potassium (Cozaar) 50 mg DAILY PO Last administered on 06/09/17 08:31 ; Start 8/23/17 at 20:00 Lurasidone HCl (Latuda) 80 mg QHS PO Last administered on 06/08/17 20:25; Start 06/07/17 at 21:00 Oxycodone HCl (Roxicodone) 10 mg PRN Q6HRS PRN PO PAIN Last administered on 08:37; Start 06/07/17 at 20:30 Atorvastatin Calcium (Lipitor) 40 mg QHS PO Last administered on 06/08/17 20: 25; Start 06/08/17 at 21:00 Metoprolol Tartrate (Lopressor) 25 mg BID PO ; Start 06/08/17 at 21:00; Status UNV Sodium Chloride 1,000 ml @ 75 mls/hr [id number] IV Last administered on 05:36; Start 06/08/17 at 13:30 Active Scripts Active Mupirocin Ointment (Mupirocin) 22 Gm Oint...g. 1 Kel TP TID Hydroxyzine Pamoate 50 Mg Capsule 1 Cap PO TID Prednisone 50 Mg Tablet 1 Tab PO DAILY Pepcid (Famotidine) 20 Mg Tablet 20 Mg PO BID 5 Days Protonix (Pantoprazole Sodium) 40 Mg Tablet.dr 1 Tab PO BID Reported Iron Supplement (Ferrous Sulfate) 325 Mg Tablet 1 Tab PO DAILY [losartan Potassium] 50 1 Tab PO DAILY Metoprolol Tartrate 50 Mg Tablet 1 Tab PO BID Ventolin Hfa Inhaler (Albuterol Sulfate) 18 Gm Hfa.aer.ad 2 Puff IH PRN Q4-6HRS Benadryl (Diphenhydramine Hcl) 25 Mg Capsule 25 Mg PO PRN Vitamin E (Vitamin E (Dl,Tocopheryl Acet)) 100 Unit Capsule 100 Unit PO Aspirin 81 Mg Tab.chew 1 Tab PO DAILY Hydrocodone-Apap 7.5-325 (Hydrocodone Bit/Acetaminophen) 1 Each Tablet 1 Tab PO PRN Q6HRS PRN Hydrochlorothiazide Tablet (Hydrochlorothiazide) 25 Mg Tablet 1 Tab PO DAILY Latuda (Lurasidone Hcl) 80 Mg Tablet 1 Tab PO QHS Lantus Solostar (Insulin Glargine,Hum.rec.anlog) 100 Unit/1 Ml Insuln.pen 60 Unit SQ BID Novolog Flexpen (Insulin Aspart) 100 Unit/1 Ml Insuln.pen 40 Unit SQ TIDAC Trazodone Hcl 100 Mg Tablet 100 Mg PO BID Cyclobenzaprine Hcl 10 Mg Tablet 1 Tab PO TID PRN Metformin Hcl 1,000 Mg Tablet 1 Tab PO BID Vitals/I & O Vital Sign - Last 24 Hours 06/08/17 06/08/17 06/08/17 06/08/17 15:04 17:47 19:00 20:00 Temp 98.1 98.0 98.1 98.0 Pulse 96 91 Resp 20 22 B/P (MAP) 110/86 (94) 137/73 (94) Pulse Ox 98 98 96 O2 Delivery Room Air Room Air Room Air Room Air 06/08/17 06/08/17 06/09/17 06/09/17 22:49 23:53 03:00 07:00 Temp 97.6 97.7 98.2 97.6 97.7 98.2 Pulse 95 81 83 Resp 21 20 16 B/P (MAP) 118/71 (87) 131/76 (94) 124/74 (91) Pulse Ox 97 97 99 97 O2 Delivery Room Air Room Air Room Air Room Air 06/09/17 06/09/17 06/09/17 06/09/17 07:40 08:31 08:37 09:35 Pulse 83 Resp 20 20 B/P (MAP) 124/74 Pulse Ox 97 97 O2 Delivery Room Air Room Air Room Air Intake and Output 06/08/17 06/08/17 06/09/17 15:00 23:00 07:00 Intake Total 840 ml Balance 840 ml QUINTON DENG III DO Jun 09, 2017 12:47
== END 2017-06-09 12:45 | disposition home or self-care (01) | DRG 918 ==
LOC: ER 12:32 → 6 SOUTH 16:07
PROVIDERS: ADMIT Internal Medicine; ATTEND Internal Medicine
DX: T40.5X1A Poisoning by cocaine, accidental (unintentional), initial encounter (principal); E11.51 Type 2 diabetes mellitus with diabetic peripheral angiopathy without gangrene; F11.20 Opioid dependence, uncomplicated; E66.01 Morbid (severe) obesity due to excess calories; D57.80 Other sickle-cell disorders without crisis; N39.0 Urinary tract infection, site not specified; I80.9 Phlebitis and thrombophlebitis of unspecified site; R07.89 Other chest pain; I10 Essential (primary) hypertension; E78.5 Hyperlipidemia, unspecified; F12.10 Cannabis abuse, uncomplicated; F14.10 Cocaine abuse, uncomplicated; F17.210 Nicotine dependence, cigarettes, uncomplicated; I25.10 Atherosclerotic heart disease of native coronary artery without angina pectoris; K21.9 Gastro-esophageal reflux disease without esophagitis; K59.09 Other constipation; F32.9 Major depressive disorder, single episode, unspecified; F41.9 Anxiety disorder, unspecified; J30.9 Allergic rhinitis, unspecified; E78.00 Pure hypercholesterolemia, unspecified; I25.2 Old myocardial infarction; Z88.6 Allergy status to analgesic agent; Z88.1 Allergy status to other antibiotic agents; Z88.8 Allergy status to other drugs, medicaments and biological substances; Z79.4 Long term (current) use of insulin; Z68.36 Body mass index [BMI] 36.0-36.9, adult; Z87.11 Personal history of peptic ulcer disease; Z86.73 Personal history of transient ischemic attack (TIA), and cerebral infarction without residual deficits; Z95.5 Presence of coronary angioplasty implant and graft; Z79.84 Long term (current) use of oral hypoglycemic drugs
CPT/HCPCS: 36415; 71010; 74177; 76856; 80048; 80061; 80076; 80307; 81001; 82962; 83036; 83690; 83880; 84443; 84484; 85025; 87086; 87186; 93005; 93306; 94250; 96365; 96375; J0690; J0696; J1650; J1815; J3010; J7030; Q9967; 99285-25; G0479

== ENCOUNTER 2017-07-13 13:09 | Emergency (ER) | payer OTHER ==
[~2017-07-13] VITALS: Ht 167.6 cm; Wt 98.0 kg
[2017-07-13 13:14] VITALS: BP 142/82
[2017-07-13] MEDS ORDERED: CLIN150C14 PO (14:20)
[2017-07-13] MEDS ORDERED: HYDR-971 PO (14:20)
[2017-07-13] MEDS ORDERED: CYCL10TA2 PO (14:20)
[2017-07-13] MEDS ORDERED: PRED50TA PO (14:20)
[2017-07-13] MEDS ORDERED: NYST15CR2 TP (14:20)
--- NOTE | 2017-07-13 14:20 | PHYS DOC ---
Past Medical History Past Medical History: Asthma, CAD, Diabetes-Type II, High Cholesterol, Hypertension, [place] Additional Past Medical Histor: [place] x 2 Past Surgical History: Angioplasty, Other Additional Past Surgical Histo: STENTS X'S 2 Additional Information: 5-6 cigarettes daily Alcohol Use: None Drug Use: Cocaine, Marijuana Adult General Chief Complaint Chief Complaint: MULTIPLE COMPLAINTS HPI HPI Patient is a 57 year old female with a history of high pressure, high cholesterol, chronic neck and low back pain who presents today with chronic neck and low back pain. Patient denies any known injury. She states she sued her doctor and is trying to find another doctor to follow up with. Patient denies any loss of bowel bladder function. Patient's also complaining of a rash on her hand and lower extremity but she believes it is infected. She states she' s had it for couple days. Review of Systems Review of Systems Constitutional: Denies fever or chills [] Musculoskeletal: Chronic neck and back pain Integument: rash Neurologic: Denies headache, focal weakness or sensory changes [] Allergies Allergies Allergies Coded Allergies Type Severity Reaction Last Updated Verified doxycycline Allergy Intermediate Rash 04/11/17 Yes ketorolac Allergy Intermediate 06/09/17 Yes lactose Allergy Intermediate 04/25/17 Yes morphine Allergy Intermediate 06/09/17 Yes Uncoded Allergies Type Severity Reaction Last Updated Verified ALL FRESH FRUITS Allergy Unknown 04/25/17 Physical Exam Physical Exam Constitutional: Well developed, well nourished, no acute distress, non-toxic appearance. [] HENT: Normocephalic, atraumatic, bilateral external ears normal, oropharynx moist, no oral exudates, nose normal. [] Eyes: PERRLA, EOMI, conjunctiva normal, no discharge. [] Neck: Cervical spine with old healed surgical incision. Normal range of motion, diffuse paraspinal muscle tenderness to the cervical spine, no midline cervical spine tenderness, supple, no stridor. [] Cardiovascular:Heart rate regular rhythm, no murmur [] Lungs & Thorax: Bilateral breath sounds clear to auscultation [] Abdomen: Bowel sounds normal, soft, no tenderness, no masses, no pulsatile masses. [] Skin: Warm, dry, left medial ankle, webspace between the index finger and middle finger, and left palm with a circular rash with surrounding cellulitis may be fungal rash with cellulitis. Back: Diffuse paraspinal muscle tenderness to the lumbar spine bilaterally no midline tenderness, no CVA tenderness. [] Extremities: No tenderness, no cyanosis, no clubbing, ROM intact, no edema. [] Neurologic: Alert and oriented X 3, normal motor function, normal sensory function, no focal deficits noted. [] Psychologic: Affect normal, judgement normal, mood normal. [] Current Patient Data Vital Signs Vital Signs Date Time Temp Pulse Resp B/P (MAP) Pulse Ox O2 Delivery O2 Flow Rate FiO2 07/13/17 13:14 98.5 108 18 99 Room Air 98.5 EKG EKG [] Radiology/Procedures Radiology/Procedures [] Course & Med Decision Making Course & Med Decision Making Pertinent Labs and Imaging studies reviewed. (See chart for details) Patient is in the ED with exacerbation of chronic back pain and neck pain. No known injury. She'll be discharged with 6 tablets of Arthur and cyclobenzaprine. Provided a doctor's list for follow-up. She also has a rash on her left lower extremity with some cellulitis as well as on the left upper extremity the rash could be fungal rash with some cellulitis. She'll be discharged with nystatin triamcinolone cream, prednisone and clindamycin. Follow-up with her PCP in one week or doctor from the list provided. Dragon Disclaimer Dragon Disclaimer This electronic medical record was generated, in whole or in part, using a voice recognition dictation system. Departure Departure Impression: Primary Impression: Chronic neck and back pain Additional Impressions: Contact dermatitis Cellulitis Tinea corporis Disposition: 01 HOME, SELF-CARE Condition: STABLE Referrals: YONIS MARTINEZ MD (PCP) follow up with your doctor as soon as you can Patient Instructions: Back Pain, Adult, Body Ringworm, Contact Dermatitis, Easy -to-Read Additional Instructions: You were seen with exacerbation of chronic back pain and neck pain. Follow-up with a doctor from the list provided as soon as you can. Take the prescribed medications as ordered. Follow-up with the cable layer if the rash does not go away in 2 weeks. Scripts Clindamycin Hcl (CLINDAMYCIN HCL) 150 Mg Capsule 3 CAP PO TID, #90 CAP Prov: RONNY JIMENEZ APRN 07/13/17 Prednisone (PREDNISONE) 50 Mg Tablet 1 TAB PO DAILY, #5 TAB Prov: RONNY JIMENEZ APRN 07/13/17 Nystatin/Triamcin (NYSTATIN-TRIAMCINOLONE CREAM) 15 Gm Cream..g. 1 BRYANT TP BID, #30 GM 1 Refill Prov: GERRYRONNY MCCOY SHAWNA 07/13/17 Cyclobenzaprine Hcl (CYCLOBENZAPRINE HCL) 10 Mg Tablet 1 TAB PO TID, #30 TAB Prov: CAROLINARONNY Garcia SHAWNA 07/13/17 Hydrocodone/Apap 5-325 (NORCO 5-325 TABLET) 1 Each Tablet 1 TAB PO Q4-6HRS, #10 TAB Prov: CAROLINARONNY Garcia SHAWNA 07/13/17 Problem Qualifiers Additional Impressions: Contact dermatitis Contact dermatitis type: unspecified Contact dermatitis trigger: unspecified trigger Qualified Codes: L25.9 - Unspecified contact dermatitis, unspecified cause Cellulitis Site of cellulitis: extremity Site of cellulitis of extremity: lower extremity Laterality: left Qualified Codes: L03.116 - Cellulitis of left lower limb CAROLINARONNY Garcia SHAWNA Jul 13, 2017 14:20
== END 2017-07-13 14:26 | disposition home or self-care (01) ==
LOC: ER 13:09
DX: G89.29 Other chronic pain (principal); M54.5 Low back pain; M54.2 Cervicalgia; L25.9 Unspecified contact dermatitis, unspecified cause; B35.4 Tinea corporis; L03.116 Cellulitis of left lower limb; E11.9 Type 2 diabetes mellitus without complications; I25.10 Atherosclerotic heart disease of native coronary artery without angina pectoris; I10 Essential (primary) hypertension; E78.00 Pure hypercholesterolemia, unspecified; J45.909 Unspecified asthma, uncomplicated; I25.2 Old myocardial infarction; Z98.61 Coronary angioplasty status; F17.210 Nicotine dependence, cigarettes, uncomplicated; F12.10 Cannabis abuse, uncomplicated; F14.10 Cocaine abuse, uncomplicated; Z88.5 Allergy status to narcotic agent; Z88.1 Allergy status to other antibiotic agents; Z88.8 Allergy status to other drugs, medicaments and biological substances; Z91.011 Allergy to milk products
CPT/HCPCS: 99283

== ENCOUNTER 2017-07-26 16:35 | Emergency (ER) | payer OTHER ==
[~2017-07-26 16:35] MED LIST changes: +CLIN150C14 PO; +HYDR-971 PO; +NYST15CR2 TP
[2017-07-26 16:43] VITALS: BP 150/75
--- NOTE | 2017-07-26 17:49 | PHYS DOC ---
Past Medical History Past Medical History: Asthma, CAD, Diabetes-Type II, High Cholesterol, Hypertension, GA Additional Past Medical Histor: GA x 2 Past Surgical History: Angioplasty, Other Additional Past Surgical Histo: STENTS X'S 2 Alcohol Use: None Drug Use: Cocaine, Marijuana Social History Narrative: PAST USING COCAINE 7 MONTHS AGO Adult General Chief Complaint Chief Complaint: SKIN PROBLEM HPI HPI Patient is a 57 year old female with history of diabetes type 2, hypertension, high cholesterol, CAD, who presents today complaining of an open wound on the left medial ankle. Patient states the wound began 2 weeks ago after she was diagnosed with UTI and put on doxycycline. She states she developed a blister to the area and was considered to have an adverse reaction to doxycycline which was stopped. She states she was seen in the ED and was given antibiotics. She states the area opened up yesterday and now is an open wound. Patient states she is not able to follow-up with her PCP because she is sued her PCP. She states she cannot see the other doctor that her insurance recommended because she went to see the doctor the doctor who wanted to hold her hand and pray for her. Patient states she does not want anyone holding her hand to prefer her but she is willing to let the doctor pray for her without holding her hand so she did not go back. Review of Systems Review of Systems Constitutional: Denies fever or chills [] Musculoskeletal: Denies back pain or joint pain [] Integument: open wound to the left medial ankle Neurologic: Denies headache, focal weakness or sensory changes [] Allergies Allergies Allergies Coded Allergies Type Severity Reaction Last Updated Verified doxycycline Allergy Intermediate Rash 04/11/17 Yes ketorolac Allergy Intermediate 06/09/17 Yes lactose Allergy Intermediate 04/25/17 Yes morphine Allergy Intermediate 06/09/17 Yes Uncoded Allergies Type Severity Reaction Last Updated Verified ALL FRESH FRUITS Allergy Unknown 04/25/17 Physical Exam Physical Exam Constitutional: Well developed, well nourished, no acute distress, non-toxic appearance. [] Skin: Warm, dry,there is a 4X3 cm open red blister on the left medial ankle. There is no drainage from the area. Neurovascular exam is intact to the affected extremity. Back: No tenderness, no CVA tenderness. [] Extremities: No tenderness, no cyanosis, no clubbing, ROM intact, no edema. [] Neurologic: Alert and oriented X 3, normal motor function, normal sensory function, no focal deficits noted. [] Psychologic: Affect normal, judgement normal, mood normal. [] Current Patient Data Vital Signs Vital Signs Date Time Temp Pulse Resp B/P (MAP) Pulse Ox O2 Delivery O2 Flow Rate FiO2 07/26/17 16:43 98.3 100 20 97 Room Air 98.3 EKG EKG [] Radiology/Procedures Radiology/Procedures [] Course & Med Decision Making Course & Med Decision Making Pertinent Labs and Imaging studies reviewed. (See chart for details) Patient is in the ED complaining of a wound to the left medial ankle. Her tetanus is up-to-date. I recommended she follows up with the wound clinic at [facility] tomorrow, instructed she must call the clinic before showing up. She was given Bactroban, cephalexin, and prescription for 4 tablets of [place] and condition she must fill the prescription for antibiotics. Dragon Disclaimer Dragon Disclaimer This electronic medical record was generated, in whole or in part, using a voice recognition dictation system. Departure Departure Impression: Primary Impression: Infected wound Disposition: 01 HOME, SELF-CARE Condition: STABLE Referrals: YONIS MARTINEZ MD (PCP) Follow-up with the [facility] wound clinic tomorrow. Please call the office first thing in the morning. The phone number is [phone] and set up a follow-up appointment. Patient Instructions: Wound Infection Additional Instructions: You have an open wound on your left medial ankle. Please complete the prescribed antibiotics and use the prescribed antibiotic cream as ordered. We want you to follow-up with the [facility] wound clinic. You must call them tomorrow morning and set up a follow-up appointment. Scripts Fluconazole (DIFLUCAN) 150 Mg Tablet 1 TAB PO ONCE, #1 TAB 1 Refill Prov: MUTUNGARONNY [employer]CHER 07/26/17 Hydrocodone/Apap 5-325 (NORCO 5-325 TABLET) 1 Each Tablet 1-2 TAB PO Q4-6HRS, #4 TAB Must fill Cephalaxin and Bactroban ointment prior to filling [place]. Prov: RONNY JIMENEZ PHOTOENGRAVING RETOUCHER 07/26/17 Mupirocin Calcium (BACTROBAN CREAM) 15 Gm Cream..g. 1 BRYANT TP TID, #30 GM Prov: MUTUNGA,RONNY [employer]ENG[employer]ING RETOUCHER 07/26/17 Cephalexin (CEPHALEXIN) 500 Mg Tablet 1 TAB PO QID, #40 TAB Prov: RONNY JIMENEZ APRN 07/26/17 RONNY JIMENEZ APRN Jul 26, 2017 17:49
[2017-07-26] MEDS ORDERED: CEPH500T PO (17:53)
[2017-07-26] MEDS ORDERED: FLUC150T PO (17:53)
[2017-07-26] MEDS ORDERED: MUPI15CR TP (17:53)
[2017-07-26] MEDS ORDERED: HYDR-971 PO (17:53)
== END 2017-07-26 17:54 | disposition home or self-care (01) ==
LOC: ER 16:35
DX: T81.4XXD Infection following a procedure, subsequent encounter (principal); M00.9 Pyogenic arthritis, unspecified; T36 Poisoning by, adverse effect of and underdosing of systemic antibiotics; J45.909 Unspecified asthma, uncomplicated; I25.10 Atherosclerotic heart disease of native coronary artery without angina pectoris; E11.9 Type 2 diabetes mellitus without complications; E78.00 Pure hypercholesterolemia, unspecified; I10 Essential (primary) hypertension; I25.2 Old myocardial infarction; Z88.1 Allergy status to other antibiotic agents; Z88.5 Allergy status to narcotic agent; Z88.8 Allergy status to other drugs, medicaments and biological substances; Z91.011 Allergy to milk products; Z91.018 Allergy to other foods; Z95.5 Presence of coronary angioplasty implant and graft
CPT/HCPCS: 99283

== ENCOUNTER 2021-04-27 13:35 | Emergency (ER) | payer OTHER ==
[2019-12-26 11:00] VITALS: BP 149/93
[~2021-04-27 13:35] MED LIST changes: +CEPH500T PO; -CLIN150C14 PO; +CLIN150C15 PO; +FLUC150T PO; +HYDR-2145 PO; -HYDR-2762 PO; +HYDR-2765 PO; +HYDR-2769 PO; +HYDR-3164 PO; -HYDR-971 PO; -HYDR25TA9 PO; +INSU100V6 SQ; +LOSA100T14 PO; -METF-620 PO; +METF10007 PO; -METO50TA2 PO; +METO50TA6 PO; +MUPI15CR TP; -PANT40TA3 PO; +PANT40TA77 PO; +SPIR25TA5 PO; +TRAZ-123 PO; -TRAZ100T12 PO; +VITA100C10 PO; -VITA100C8 PO
== END 2021-04-27 15:01 | disposition left against medical advice (07) ==
LOC: ER 13:35
DX: R52 Pain, unspecified (principal); Z53.21 Procedure and treatment not carried out due to patient leaving prior to being seen by health care provider; W18.39XA Other fall on same level, initial encounter; Y93.89 Activity, other specified; Y92.89 Other specified places as the place of occurrence of the external cause; Y99.8 Other external cause status